=== PATIENT | male | born 1955 | race Caucasian/White ===

== ENCOUNTER 2020-01-05 16:45 | Inpatient (IN) ==
--- NOTE | 2020-01-05 17:01 | Emergency Department Note ---
History of Present Illness General Chief complaint: Back Injury/Pain Stated complaint: BACK PAIN Time Seen by Provider: 01/05/20 16:50 Source: patient Mode of arrival: EMS Limitations: no limitations History of Present Illness Provider complaint: Back pain, left hip pain Onset (ago): week(s) Location: back and hip Radiation: extremity Severity: severe Pain Consistency: + constant Maximum Pain Intensity: 10 Current Pain Intensity: 10 Quality: + constant Relieved By: + none Exacerbated By: + movement Associated symptoms: + denies other symptoms Treatments prior to arrival: none This is a 64-year-old male who presents via EMS from home due to worsening low back and left hip pain with radiation into the left lower extremity. Patient states he has been dealing with pain over the last several weeks/months. Patient was seen and evaluated by his family doctor who performed x-rays and an injection of the left hip for bursitis. Patient states he had followed up with his family doctor also after completing a course of steroids due to worsening pain as well as left morse pain and was referred for an outpatient MRI. Patient states he went and had the MRI done today and had increasing pain after he got off the table trying to get dressed and was unable to move. Patient states he typically would find relief laying flat or doing stretches he had learned for his low back. Patient is also been using some old Darvocet he had from prior hernia surgery at home without any improvement of pain. Patient states he has been using the Darvocet with increasing frequency due to worsening pain. Patient denies any recent trauma or change in activity. Patient states his pain initially began 2 months ago and he had slowly decrease the amount of walking he was doing daily, and began to limit any lifting and activity. Patient states the pain continued to worsen. Patient is also been using anti-inflammatories. Patient not noticed any redness or rash over the area of injection at the left greater trochanter. Pt seen during a time of high acuity and national emergency pandemic while wearing PPE. Home Medications Home Medications Medication Instructions Recorded Confirmed Type dextrin 2 tsp PO DAILY 01/05/20 01/05/20 History gabapentin 100 mg PO Q8H PRN #30 cap 01/05/20 Rx naproxen sodium [Naprelan CR] 500 mg PO BID 01/05/20 01/05/20 History oxycodone 5 mg PO Q6H PRN #10 tab 01/05/20 Rx propoxyphene N-acetaminophen 1 tab PO Q12H PRN 01/05/20 01/05/20 History [Darvocet-N 100] tamsulosin [Flomax] 0.4 mg PO HS 01/05/20 01/05/20 History Allergies Allergy/AdvReac Type Severity Reaction Status Date / Time hydrocodone Allergy Unknown DIZZY, Verified 01/05/20 19:44 RASH, NAUSEA oxaprozin AdvReac Mild "BLOATED, Verified 01/05/20 19:44 NAUSEA" clarithromycin AdvReac Unknown "JITTERY, Verified 01/05/20 19:44 TIRED, RAPID PULSE." terazosin AdvReac Unknown "RINING IN Verified 01/05/20 19:44 EARS, DIZZY" Past Med/Surg History Social History Smoking Status: Never smoker Hx Alcohol Use: No Hx Substance Use: No Preferred Language: Bhutanese Communication Ability: Effective Coordinator Volunteer Services Required: No Beliefs That Will Affect Care: None Current Living Situation: Spouse Other Information That Helps Us Care for You: No Feels Safe at Home: Yes Safety Concerns: Feels Safe At This Time Review of Systems See HPI for pertinent positives & negatives. and A total of 10 systems reviewed and were otherwise negative Physical Exam Vital Signs Vital Signs - 24 hr 01/05/20 17:15 01/05/20 17:34 01/05/20 18:00 Temperature 36.9 C Temperature Source Oral Pulse Rate 80 70 71 Pulse Rate [Bilateral Apical] Respiratory Rate 18 17 23 Blood Pressure 138/88 Blood Pressure [Left Arm] Blood Pressure Mean 104 Blood Pressure Mean [Left Arm] Pulse Oximetry 98 Oxygen Delivery Method Room Air Sepsis Recent Fever Within 48 Hours No Sepsis New/Unexplained Change in Mental Status No Sepsis Action Taken by Nursing No Action Required 01/05/20 18:31 01/05/20 18:33 01/05/20 19:10 Temperature Temperature Source Pulse Rate 61 63 Pulse Rate [Bilateral Apical] 60 Respiratory Rate 18 18 20 Blood Pressure 132/77 Blood Pressure [Left Arm] 124/66 Blood Pressure Mean 99 Blood Pressure Mean [Left Arm] 85 Pulse Oximetry 98 Oxygen Delivery Method Room Air Sepsis Recent Fever Within 48 Hours Sepsis New/Unexplained Change in Mental Status Sepsis Action Taken by Nursing 01/05/20 20:37 Temperature Temperature Source Pulse Rate Pulse Rate [Bilateral Apical] 70 Respiratory Rate 18 Blood Pressure Blood Pressure [Left Arm] 101/60 Blood Pressure Mean Blood Pressure Mean [Left Arm] 73 Pulse Oximetry 97 Oxygen Delivery Method Room Air Sepsis Recent Fever Within 48 Hours Sepsis New/Unexplained Change in Mental Status Sepsis Action Taken by Nursing GENERAL: alert, uncomfortable appearing, well nourished, moderate distress, non- toxic EYE EXAM: normal conjunctiva, PERRL and EOM's grossly intact OROPHARYNX: no exudate, no erythema, lips, buccal mucosa, and tongue normal and mucous membranes are moist NECK: supple, no nuchal rigidity, no adenopathy, non-tender LUNGS: Clear to auscultation. Normal chest wall mechanics, no w/r/r HEART: no murmurs, S1 normal and S2 normal ABDOMEN: abdomen soft, non-tender, normo-active bowel sounds, no masses, no rebound or guarding. BACK: Back is symmetrical on inspection and there is no deformity, no midline tenderness, no CVA tenderness. SKIN: no rashes and no bruising UPPER EXTREMITIES: upper extremities are grossly normal. FROM, nml pulses b/l. LOWER EXTREMITIES: No pitting edema. Decreased range of motion secondary to pain, nml pulses b/l. Patellar reflexes 1/4 b/l. Sensation intact b/l. +straight leg raise on left. No erythema or rash over left greater trochanter. Pt states subjectively feels warm to him. NEURO EXAM: Normal sensorium, cranial nerves II-XII grossly intact, normal speech, no gross weakness of arms, Difficulty assessing for weakness in the legs due to pain with movement most notably on the left. Gross sensation intact. Course Course 1739: Pt still having significant pain. 1825: Pt pain improved, worse with attempts at movement. 1944: Pt states pain returning, now a 14 out of 10. 2010: And if there was any option for inpatient rehab referral and they stated based on his insurance he would not be a candidate. Patient would either have to be admitted, which at this point time would be an observation, or discharged home to try and arrange home rehab as an outpatient. 2049: Pt rechecked. He would still like to try and go home, but understands that if he cannot walk due to pain, he will stay for pain mgmt and possible additional evaluation. Administered Medications Hydromorphone HCl (Hydromorphone Inj 0.5 Mg/0.5 Ml Syr) 0.2 mg IV Q3H PRN PRN Reason: Severe Pain Stop: 01/20/20 04:03 Last Admin: 01/07/20 00:31 Dose: 0.2 mg Documented by: [id number] Admin: 01/06/20 21:34 Dose: 0.2 mg Documented by: [id number] Admin: 01/06/20 18:25 Dose: 0.2 mg Documented by: [id number] Admin: 01/06/20 15:37 Dose: 0.2 mg Documented by: [id number] Admin: 01/06/20 08:42 Dose: 0.2 mg Documented by: [id number] Admin: 01/06/20 05:23 Dose: 0.2 mg Documented by: [id number] Dexamethasone 4 mg/ Syringe 1 mls @ 100 mls/hr IV Q6H CARROLL Stop: 02/05/20 05:59 Last Admin: 01/07/20 00:31 Dose: 100 mls/hr Documented by: [id number] Admin: 01/06/20 17:05 Dose: 100 mls/hr Documented by: [id number] Admin: 01/06/20 12:28 Dose: 100 mls/hr Documented by: [id number] Admin: 01/06/20 05:23 Dose: 100 mls/hr Documented by: [id number] Tamsulosin HCl (Tamsulosin Hcl 0.4 Mg Cap) 0.4 mg PO HS CARROLL Stop: 02/05/20 20:59 Last Admin: 01/06/20 20:36 Dose: 0.4 mg Documented by: [id number] Discontinued Medications Dexamethasone (Dexamethasone Sod Inj 10 Mg/Ml Vial) 10 mg IV NOW STA Stop: 01/05/20 22:48 Last Admin: 01/05/20 22:57 Dose: 10 mg Documented by: [id number] Diazepam (Diazepam 5 Mg/Ml Inj 10ml Vial) 2 mg IV NOW STA Stop: 01/05/20 17:45 Last Admin: 01/05/20 19:44 Dose: 2 mg Documented by: [id number] Diclofenac Sodium (Diclofenac Sod 1% Gel 100 Gm Tube) 2 gm EXT NOW STA Stop: 01/05/20 17:09 Last Admin: 01/05/20 17:38 Dose: 2 gm Documented by: [id number] Fentanyl Citrate (Fentanyl Citrate 100 Mcg/2 Ml Vial) 50 mcg IV Q15M PRN PRN Reason: Pain Stop: 01/19/20 17:02 Last Admin: 01/05/20 22:39 Dose: 50 mcg Documented by: [id number] Admin: 01/05/20 21:27 Dose: 50 mcg Documented by: [id number] Admin: 01/05/20 19:44 Dose: 50 mcg Documented by: [id number] Admin: 01/05/20 17:41 Dose: 50 mcg Documented by: [id number] Admin: 01/05/20 17:22 Dose: 50 mcg Documented by: [id number] Gabapentin (Gabapentin 100 Mg Cap) 100 mg PO NOW STA Stop: 01/05/20 17:57 Last Admin: 01/05/20 18:58 Dose: 100 mg Documented by: [id number] Acetaminophen (Ofirmev) 1,000 mg in 100 mls @ 400 mls/hr IV NOW STA Stop: 01/05/20 17:17 Last Infusion: 01/05/20 17:38 Dose: 0 mls/hr Documented by: [id number] Admin: 01/05/20 17:22 Dose: 400 mls/hr Documented by: [id number] Oxycodone HCl (Oxycodone Hcl Ir 5 Mg Tab (Immediate Release)) 5 mg PO NOW STA Stop: 01/05/20 19:46 Last Admin: 01/05/20 20:04 Dose: Not Given Documented by: [id number] Oxycodone HCl (Oxycodone Hcl Ir 5 Mg Tab (Immediate Release)) 5 mg PO NOW STA Stop: 01/05/20 20:25 Last Admin: 01/05/20 20:36 Dose: 5 mg Documented by: [id number] Trazodone HCl (Trazodone Hcl 50 Mg Tab) 50 mg PO NOW ONE Stop: 01/06/20 21:52 Last Admin: 01/06/20 22:25 Dose: 50 mg Documented by: [id number] Medical Decision Making Differential Diagnosis Differential diagnoses includes but is not limited to lumbar radiculopathy, muscle strain, facture, cauda equina, mass, and disc herniation. Medical Records Attestation: I reviewed the patient's medical records. Home Medications Current Medication List: was personally reviewed by me Laboratory Data Attestation: I reviewed the patient's lab results. Result diagrams: 01/05/20 17:10 01/05/20 17:10 Lab Results 01/05/20 01/05/20 01/05/20 Range/Units 17:10 17:10 17:10 WBC 10.45 (4.8-10.8) K/uL RBC 4.65 L (4.7-6.1) M/uL Hgb 14.2 (14.0-18.0) g/dL Hct 41.4 L (42-52) % MCV 89.0 (80-100) fL MCH 30.5 (25-34) pg MCHC 34.3 (32-36) g/dL RDW Std Deviation 41.6 (36.4-46.3) fL RDW Coeff of Speedy 12.8 (11.5-14.5) % Plt Count 235 (130-400) K/uL MPV 11.1 H (7.4-10.4) fL Immature Gran % (Auto) 0.2 % Neut % (Auto) 80.3 % Lymph % (Auto) 12.5 % [place] % (Auto) 6.2 % Eos % (Auto) 0.5 % Baso % (Auto) 0.3 % Neut # (Auto) 8.39 H (1.4-6.5) K/uL Lymph # (Auto) 1.31 (1.2-3.4) K/uL [place] # (Auto) 0.65 H (0.11-0.59) K/uL Eos # (Auto) 0.05 (0-0.5) K/uL Baso # (Auto) 0.03 (0-0.2) K/uL Immature Gran # (Auto) 0.02 (0.00-0.02) K/uL Sodium 138 (136-145) mmol/L Potassium 4.2 (3.5-5.1) mmol/L Chloride 104 (98-107) mmol/L Carbon Dioxide 25 (21-32) mmol/L Anion Gap 9.0 (3-11) BUN 16 (7-18) mg/dl Creatinine 1.31 (0.6-1.4) mg/dl Est Cr Clr Drug Dosing 54.4 ml/min Est GFR ( Amer) 65.8 Est GFR (Non-Af Amer) 56.7 BUN/Creatinine Ratio 11.9 (10-20) Glucose 114 H (70-99) mg/dl Calcium 9.2 (8.5-10.1) mg/dl Total Bilirubin 0.6 (0.2-1) mg/dl AST 25 (15-37) U/L ALT 44 (12-78) U/L Alkaline Phosphatase 53 (45-117) U/L Total Protein 7.6 (6.4-8.2) gm/dl Albumin 4.1 (3.4-5.0) gm/dl Globulin 3.5 (2.5-4.0) gm/dl Albumin/Globulin Ratio 1.2 (0.9-2) Hepatitis C Ab Screen Neg (Neg) Imaging Data Radiologist's Impression: MR lumbar spine wo con(performed earlier today as outpatient) CLINICAL HISTORY: RADICULOPATHY OF THE LUMBAR REGION TECHNIQUE: Sagittal and axial T1, T2 and STIR images were obtained. COMPARISON STUDY: X-ray study dated 10/30/2019 OBSERVATIONS: There is a 9 mm T1 and T2 hypointense lesion within the L3 vertebral body, likely representing a bone island. There is an L1 vertebral body focal fatty rest/hemangioma. L1-2: There is a mild circumferential disc bulge with mild spinal canal narrow ing. There is no significant foraminal stenosis. L2-3: There is a mild circumferential disc bulge with mild spinal canal narrowing. There is no significant foraminal stenosis. L3-4: In addition to a circumferential disc bulge, there is a left foraminal disc protrusion. There is moderate spinal stenosis and mild bilateral foraminal narrowing. L4-5: There is a mild circumferential disc bulge. There is no significant spinal or foraminal stenosis L5-S1: No disc protrusions or extrusions. No evidence of spinal canal or neural foraminal compromise. The conus medullaris and cauda equina appear normal. IMPRESSION: 1. Circumferential disc bulge and left foraminal disc protrusion at the L3-4 lev el. Moderate spinal stenosis and mild bilateral foraminal narrowing 2. Mild disc bulges with mild spinal canal narrowing at the L1-2 and L2-3 levels. ACT 112: Negative or not required by law. Electronically signed by: Lenard Matias M.D. 01/05/2020 3:57 PM XR hip LT 2V w pelvis HISTORY: 64 years-old Male pain . 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 No acute fracture, dislocation or definite avascular necrosis. Phleboliths of the pelvis. Unremarkable soft tissues. IMPRESSION: No acute fracture or dislocation. ACT 112: Negative or not required by law. The above report was generated using voice recognition software. It may contain grammatical, syntax or spelling errors. Electronically signed by: Mateo Moore M.D. 01/05/2020 6:38 PM ECG Data Attestation: I personally reviewed and interpreted this ECG as follows: Indication: + back/shoulder pain Rate (beats per minute): 77 Rhythm: + normal sinus ECG Intervals/blocks: + Normal QRS and + Normal QT ECG [place]: + Normal ECG ST segments: + Normal ST segments Blood Pressure Blood Pressure Findings: Elevated blood pressure Blood Pressure Disposition: further management by hospitalist VICTOR MANUEL Narrative This is s a 64-year-old male who presents due to increased left low back, left hip, left lower extremity pain. Patient has been in the process of evaluating and managing this via his PCP as an outpatient and did undergo an outpatient MRI earlier today. Patient has had a trial of steroids, and has also participated in physical therapy without any significant improvement. Patient has been afebrile, has no accompanying abdominal pain, has had no change in bowel or bladder function, denies incontinence and saddle anesthesia. Patient has a reassuring neuro exam here with equal pulses and intact sensation, patient does exhibit signs of significant pain and distress, particularly with any attempts at movement. Based on the MRI it does appear patient has an area of disc herniation and several other disc bulges as well as some mild degenerative changes. There is no other evidence of epidural abscess or hematoma, acute discitis, or osteomyelitis. Patient given several medications cautiously as he had concerns about adverse reactions and side effects. Patient was aware that if he could not ambulate even with an assistive device, it would not be safe for him to go home despite having a at home to help him. Patient ultimately unable to ambulate here even after several different medications, and in agreement with plan for additional inpatient evaluation. An order was placed for continuous cardiac monitoring. The monitor shows a rate of _70_ with _normal sinus rhythm. Impression & Plan Back pain, Acute left lumbar radiculopathy, Intervertebral disc protrusion, Hip pain, left Discharge Plan Visit Data Chief Complaint: Back Injury/Pain Stated Complaint: BACK PAIN ED Provider: Radha Mann Discharge Problem: Back pain, Acute left lumbar radiculopathy, Intervertebral disc protrusion, Hip pain, left Patient Disposition: Home - Self-Care Discharge Instructions Interventions: ED Discharge Assessment Last Done: 01/06/20 00:03 Discharge Problem: Back pain Qualifiers: Back pain location: low back pain Chronicity: chronic Back pain laterality: left Sciatica presence: with sciatica Sciatica laterality: sciatica of left side Qualified Code(s): M54.42 - Lumbago with sciatica, left side
[2020-01-05] MEDS ORDERED: ACETAMINOPHEN 1,000 MG/100 ML VIAL IV STA (17:03)
[2020-01-05] MEDS ORDERED: DICLOFENAC SOD 1% GEL 100 GM TUBE EXT STA (17:08)
[2020-01-05] MEDS: fentaNYL citrate 100 MCG/2 ML VIAL IV PRN ×5 (17:22→22:39)
[2020-01-05] MEDS ORDERED: GABAPENTIN 100 MG CAP PO STA (17:56)
[2020-01-05 17:58] LABS: Basophils # (auto) 0.03 K/uL (0-0.2); Basophils % (auto) 0.3 %; Eosinophils # (auto) 0.05 K/uL (0-0.5); Eosinophils % (auto) 0.5 %; Hematocrit (blood only) 41.4 % (42-52); Hemoglobin 14.2 g/dL (14.0-18.0); Immature Granulocytes # (auto) 0.02 K/uL (0.00-0.02); Immature Granulocytes % (auto) 0.2 %; Lymphocytes # (auto) 1.31 K/uL (1.2-3.4); Lymphocytes % (auto) 12.5 %; Mean Corpuscular Hemoglobin 30.5 pg (25-34); Mean Corpuscular Hgb Conc 34.3 g/dL (32-36); Mean Platelet Volume 11.1 fL (7.4-10.4); Monocytes # (auto) 0.65 K/uL (0.11-0.59); Monocytes % (auto) 6.2 %; Neutrophils # (auto) 8.39 K/uL (1.4-6.5); Neutrophils % (auto) 80.3 %; Platelet Count 235 K/uL (130-400); RDW Coefficient of Variation 12.8 % (11.5-14.5); RDW Standard Deviation 41.6 fL (36.4-46.3); Red Blood Count 4.65 M/uL (4.7-6.1); White Blood Count 10.45 K/uL (4.8-10.8)
[2020-01-05 18:10] LABS: Albumin Level 4.1 gm/dl (3.4-5.0); BUN Creatinine Ratio 11.9 (10-20); Calcium 9.2 mg/dl (8.5-10.1); Creatinine Clr Calc Pharmacy 54.4 ml/min; Est GFR (African American) 65.8; Est GFR (Non-African American) 56.7; Potassium 4.2 mmol/L (3.5-5.1)
[2020-01-05 18:13] LABS: Albumin Globulin Ratio 1.2 (0.9-2); Bilirubin,Total 0.6 mg/dl (0.2-1); Globulin 3.5 gm/dl (2.5-4.0); Total Protein 7.6 gm/dl (6.4-8.2)
[2020-01-05] MEDS: DIAZEPAM 5 MG/ML INJ 10ML VIAL IV STA ×2 (18:38→19:44)
--- NOTE | 2020-01-05 18:40 | XRay Report ---
XR hip LT 2V w pelvis HISTORY: 64 years-old Male pain . 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 No acute fracture, dislocation or def inite avascular necrosis. Phleboliths of the pelvis. Unremarkable soft tissues. IMPRESSION: No acute fracture or dislocation. ACT 112: Negative or not required by law. The above report was generated using voice recognition software. It may contain grammatical, syntax o r spelling errors. Electronically signed by: Mateo Moore M.D. 01/05/2020 6:38 PM
[2020-01-05] MEDS ORDERED: OXYCODONE HCL IR 5 MG TAB (IMMEDIATE RELEASE) PO STA ×2 (19:45→20:24)
--- NOTE | 2020-01-05 21:40 | Emergency Department Note ---
ED Visit Note The patient was signed out to me awaiting an ambulatory trial. The patient has too much pain to get out of bed. The patient will require inpatient therapy and admission for pain control as he was unable to get out of bed and ambulate. The hospitalist will be made aware. . : Back pain Qualifiers: Back pain location: low back pain Chronicity: chronic Back pain laterality: left Sciatica presence: with sciatica Sciatica laterality: sciatica of left side Qualified Code(s): M54.42 - Lumbago with sciatica, left side
[2020-01-05] MEDS ORDERED: ACETAMINOPHEN 325 MG TAB PO PRN (22:35)
[2020-01-05] MEDS ORDERED: MAGNESIUM HYDROXIDE SUSP 30 ML UDC PO PRN (22:35)
[2020-01-05] MEDS ORDERED: ONDANSETRON INJ 2 MG/ML 2 ML VIAL IV PRN (22:35)
[2020-01-05] MEDS ORDERED: ALUMINUM/MAGNESIUM SUSP 30 ML UDC PO PRN (22:35)
[2020-01-05] MEDS ORDERED: DEXAMETHASONE SOD INJ 10 MG/ML VIAL IV STA (22:47)
--- NOTE | 2020-01-05 23:56 | History & Physical Report ---
Date of Service January 05, 2020 Assessment & Plan (1) Intervertebral disc protrusion: Acute left lumbar radiculopathy/L3-4 left foraminal disc protrusion/moderate spinal stenosis/mild bilateral foraminal stenosis- Give Decadron 10 mg IV x1 now and then 4 mg IV every 6 hours. Dilaudid 0.2 mg IV every 3 hours as needed severe pain Consult orthopedic spine surgery Dr. Abernathy. Consult pain management service pending spine surgery consult. Present on Admission?: Yes (2) Acute left lumbar radiculopathy: See above Present on Admission?: Yes (3) Back pain: See above Present on Admission?: Yes (4) BPH loc w urin obs/LUTS: Continue tamsulosin 0.4 mg daily Present on Admission?: Yes History of Present Illness Chief Complaint: The patient presents to the emergency department with worsening of his low back, left sacroiliac, and intermittent left lower extremity pain radiating to his ankle. Primary Care Provider: Gregory Gomes The patient is a 64-year-old male with a past medical history including BPH with LUTS and low back pain. He was seen by his PCP, and received an injection of his left hip for possible bursitis, to address the pain is had over the last several months. He was also given a course of oral prednisone without signific ant improvement, while waiting for an outpatient MRI. He did have the MRI performed today, and had such severe pain after lying flat on the table, that he presented to the ED for assessment. Patient reports that he did have some old Darvocet, along with naproxen, that he had tried to relieve the pain, without significant improvement. Allergies Allergy/AdvReac Type Severity Reaction Status Date / Time hydrocodone Allergy Unknown DIZZY, Verified 01/05/20 19:44 RASH, NAUSEA oxaprozin AdvReac Mild "BLOATED, Verified 01/05/20 19:44 NAUSEA" clarithromycin AdvReac Unknown "JITTERY, Verified 01/05/20 19:44 TIRED, RAPID PULSE." terazosin AdvReac Unknown "RINING IN Verified 01/05/20 19:44 EARS, DIZZY" Home Medications Home Medications Medication Instructions Recorded Confirmed Type dextrin 2 tsp PO DAILY 01/05/20 01/05/20 History gabapentin 100 mg PO Q8H PRN #30 cap 01/05/20 Rx naproxen sodium [Naprelan CR] 500 mg PO BID 01/05/20 01/05/20 History oxycodone 5 mg PO Q6H PRN #10 tab 01/05/20 Rx propoxyphene N-acetaminophen 1 tab PO Q12H PRN 01/05/20 01/05/20 History [Darvocet-N 100] tamsulosin [Flomax] 0.4 mg PO HS 01/05/20 01/05/20 History Past Med/Surg History Social History Smoking Status: Never smoker Hx Alcohol Use: No Hx Substance Use: No Preferred Language: Amharic Communication Ability: Effective 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 Beliefs That Will Affect Care: None Current Living Situation: Spouse Other Information That Helps Us Care for You: No Feels Safe at Home: Yes Safety Concerns: Feels Safe At This Time Review of Systems Review of Systems: The patient denies chest pain, palpitations, shortness of breath, dyspnea on exertion, cough, lower extremity swelling, sore throat, fevers, chills, sweats, weight change, fatigue, nausea, vomiting, diarrhea , constipation, abdominal pain, pelvic pain, blood in urine or stool, dysuria, urinary frequency or urgency, lightheadedness, dizziness, headache, memory loss, loss of consciousness, rash, abnormal bruising or bleeding, imbalance, focal or generalized weakness, numbness or tingling in arms or right leg, generalized arthralgias or myalgias, neck pain, or night sweats. The review of systems is otherwise negative other than for that already noted above, and at least 10 systems have been reviewed. Physical Exam Physical Exam: The patient is awake, alert and oriented 3, well developed and well nourished, normocephalic and atraumatic, lying in bed and in no acute distress. HEENT--PERRL, EOMI, mucous membranes and oropharynx normal. Neck--supple. No JVD. No bruits. Thyroid normal, trachea midline, no adenopathy. Heart--normal S1 and S2. No murmurs, rubs or gallops. Lungs--clear bilaterally, no respiratory distress, no accessory muscle use. Abdomen--normal bowel sounds and soft. Nontender. Nondistended. Extremities--no cyanosis or clubbing. No edema. There are good distal pulses b/l. Dermatologic--normal skin turgor, normal color, no abnormal lymph nodes, no rash. Neurologic--cranial nerves II through XII grossly intact. Rheumatologic--limited exam due to lower back and left sacroiliac pain. Psychiatric--normal affect. Results & Data Results & Data ([facility]) Vital Signs (Past 12 Hours) Vital Signs Temp Pulse Pulse Resp BP BP Pulse Ox 01/05/20 22:43 63 18 107/55 L 99 01/05/20 21:31 61 20 116/53 L 99 01/05/20 20:37 70 18 101/60 97 01/05/20 19:10 60 20 124/66 98 01/05/20 18:33 63 18 132/77 01/05/20 18:31 61 18 01/05/20 18:00 71 23 01/05/20 17:34 70 17 01/05/20 17:15 98.4 F 80 18 138/88 98 Laboratory Results Laboratory Results WBC 10.45 K/uL (4.8-10.8) 01/05/20 17:10 RBC 4.65 M/uL (4.7-6.1) L 01/05/20 17:10 Hgb 14.2 g/dL (14.0-18.0) 01/05/20 17:10 Hct 41.4 % (42-52) L 01/05/20 17:10 MCV 89.0 fL (80-100) 01/05/20 17:10 MCH 30.5 pg (25-34) 01/05/20 17:10 MCHC 34.3 g/dL (32-36) 01/05/20 17:10 RDW Std Deviation 41.6 fL (36.4-46.3) 01/05/20 17:10 RDW Coeff of Speedy 12.8 % (11.5-14.5) 01/05/20 17:10 Plt Count 235 K/uL (130-400) 01/05/20 17:10 MPV 11.1 fL (7.4-10.4) H 01/05/20 17:10 Immature Gran % (Auto) 0.2 % 01/05/20 17:10 Neut % (Auto) 80.3 % 01/05/20 17:10 Lymph % (Auto) 12.5 % 01/05/20 17:10 Jefferson % (Auto) 6.2 % 01/05/20 17:10 Eos % (Auto) 0.5 % 01/05/20 17:10 Baso % (Auto) 0.3 % 01/05/20 17:10 Neut # (Auto) 8.39 K/uL (1.4-6.5) H 01/05/20 17:10 Lymph # (Auto) 1.31 K/uL (1.2-3.4) 01/05/20 17:10 Jefferson # (Auto) 0.65 K/uL (0.11-0.59) H 01/05/20 17:10 Eos # (Auto) 0.05 K/uL (0-0.5) 01/05/20 17:10 Baso # (Auto) 0.03 K/uL (0-0.2) 01/05/20 17:10 Immature Gran # (Auto) 0.02 K/uL (0.00-0.02) 01/05/20 17:10 Sodium 138 mmol/L (136-145) 01/05/20 17:10 Potassium 4.2 mmol/L (3.5-5.1) 01/05/20 17:10 Chloride 104 mmol/L (98-107) 01/05/20 17:10 Carbon Dioxide 25 mmol/L (21-32) 01/05/20 17:10 Anion Gap 9.0 (3-11) 01/05/20 17:10 BUN 16 mg/dl (7-18) 01/05/20 17:10 Creatinine 1.31 mg/dl (0.6-1.4) 01/05/20 17:10 Est Cr Clr Drug Dosing 54.4 ml/min 01/05/20 17:10 Est GFR ( Amer) 65.8 01/05/20 17:10 Est GFR (Non-Af Amer) 56.7 01/05/20 17:10 BUN/Creatinine Ratio 11.9 (10-20) 01/05/20 17:10 Glucose 114 mg/dl (70-99) H 01/05/20 17:10 Calcium 9.2 mg/dl (8.5-10.1) 01/05/20 17:10 Total Bilirubin 0.6 mg/dl (0.2-1) 01/05/20 17:10 AST 25 U/L (15-37) 01/05/20 17:10 ALT 44 U/L (12-78) 01/05/20 17:10 Alkaline Phosphatase 53 U/L (45-117) 01/05/20 17:10 Total Protein 7.6 gm/dl (6.4-8.2) 01/05/20 17:10 Albumin 4.1 gm/dl (3.4-5.0) 01/05/20 17:10 Globulin 3.5 gm/dl (2.5-4.0) 01/05/20 17:10 Albumin/Globulin Ratio 1.2 (0.9-2) 01/05/20 17:10 Hepatitis C Ab Screen Neg (Neg) 01/05/20 17:10 Diagnostic Findings [place], [place] [phone] Magnetic Resonance Report Patient: Loi RAMIREZdmit Date: 01/05/20 MR#: [id number]: [address] [facility] Acct ID:[id number]: Date: [address] [place] [address] Zip: [place] [address] Age: 64Location: MRI1 Sex: MRoom/Bed: Att Phy: Russell Hawkins, JOANNEiagnosis: RADICULOPATHY OF THE LUMBAR REGION Dinorah Phy: Gregory Gomes, MDService Date: 01/05/20 Fam Phy:Interpreting Phy: Lenard Matias MD Admit Phy: Ordering Phy: Russell Hawkins DO cc: ~ MR lumbar spine wo con CLINICAL HISTORY: RADICULOPATHY OF THE LUMBAR REGION TECHNIQUE: Sagittal and axial T1, T2 and STIR images were obtained. COMPARISON STUDY: X-ray study dated 10/30/2019 OBSERVATIONS: There is a 9 mm T1 and T2 hypointense lesion within the L3 vertebral body, likely representing a bone island. There is an L1 vertebral body focal fatty rest/hemangioma. L1-2: There is a mild circumferential disc bulge with mild spinal canal narrowing. There is no significant foraminal stenosis. L2-3: There is a mild circumferential disc bulge with mild spinal canal narrowing. There is no significant foraminal stenosis. L3-4: In addition to a circumferential disc bulge, there is a left foraminal disc protrusion. There is moderate spinal stenosis and mild bilateral foraminal narrowing. L4-5: There is a mild circumferential disc bulge. There is no significant spinal or foraminal stenosis L5-S1: No disc protrusions or extrusions. No evidence of spinal canal or neural foraminal compromise. The conus medullaris and cauda equina appear normal. IMPRESSION: 1. Circumferential disc bulge and left foraminal disc protrusion at the L3-4 level. Moderate spinal stenosis and mild bilateral foraminal narrowing 2. Mild disc bulges with mild spinal canal narrowing at the L1-2 and L2-3 levels. ACT 112: Negative or not required by law. Electronically signed by: Lenard Matias M.D. 01/05/2020 3:57 PM Dictated: 01/05/20 1547 Transcribed: 01/05/[address] [facility] ROULA Rodriguez [phone] XRay Report Patient: BAUDILIO RAMIREZdmit Date: 01/05/20 MR#: [id number]: [facility] Acct ID:[id number]: Date: [address] [place] [address] Zip: [place] [address] Age: 64Location: ED Sex: MRoom/Bed: Att Phy:Diagnosis: HIP PAIN Dinorah Phy: Gregory Gomes, MDService Date: 01/05/20 Fam Phy:Interpreting Phy: Immanuel Moore Admit Phy: Ordering Phy: Radha Mann DO cc: ~ XR hip LT 2V w pelvis HISTORY: 64 years-old Male pain . 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 No acute fracture, dislocation or definite avascular necrosis. Phleboliths of the pelvis. Unremarkable soft tissues. IMPRESSION: No acute fracture or dislocation. ACT 112: Negative or not required by law. The above report was generated using voice recognition software. It may contain grammatical, syntax or spelling errors. Electronically signed by: Mateo Moore M.D. 01/05/2020 6:38 PM Dictated: 01/05/201835 Transcribed: 01/05/201835 Code Status & VTE Plan Code Status Full code VTE Prophylaxis Plan VTE Prophylaxis will be ordered: Yes PG Care Time/CCT Total # of Minutes Spent Total Time Spent with Patient: Total time spent is greater than 50% in coordination of care (as documented) at patient's floor/unit and/or counseling patient: Coding Level of Care Code 66073 OBS Care - Level 3 Diagnoses Intervertebral disc protrusion Acute left lumbar radiculopathy M54.16 Back pain M54.42; G89.29 Back pain laterality: left Back pain location: low back pain Chronicity: chronic Sciatica laterality: sciatica of left side Sciatica presence: with sciatica BPH loc w urin obs/LUTS N40.1 (1) Back pain Back pain laterality: left Back pain location: low back pain Chronicity: chronic Sciatica laterality: sciatica of left side Sciatica presence: with sciatica Qualified Code(s): M54.42 - Lumbago with sciatica, left side; G89.29 - Other chronic pain
--- NOTE | 2020-01-06 04:22 | Communication Note ---
Date of Service: January 06, 2020 Notified by nursing that patient requesting Fentanyl IV. Endorsed that oxycodone doesn't work for current pain. Fentanyl unable to be given per floor restrictions for current care level. Patient was made aware of this by nursing staff on floor. Dilaudid IV PRN was ordered for pain but patient was refusing medication, insisting on transfer to the ED or that he was going to leave AMA to go back top ED to get Fentanyl IV. I discussed with him to try the Dilaudid IV that was ordered. He was questioning the efficiacy as compared to Darvocet or H ydrocodone. I provided education on opioid equivalency. Resident Activity Tracking Resident Involvement: Resident Care Provided Care Provided: Adult Hospital Medicine
[2020-01-06] MEDS: HYDROmorphone INJ 0.5 MG/0.5 ML SYR IV PRN ×5 (05:23→21:34)
[2020-01-06] MEDS: dexAMETHasone 4 MG in SYRINGE 0 ML IV SCH ×3 (05:23→17:05)
--- NOTE | 2020-01-06 10:28 | Orthopedic Consultation ---
Date of Consultation January 06, 2020 Assessment & Plan (1) Acute left lumbar radiculopathy: Lungs questions patient reviewing his MRI findings and clinical presentation. He appears to have a acute substantial far lateral disc herniation at L3-4 on the left. This is clearly creating a severe left L3 radiculopathy. We discussed treatment options which consist of continued medication interventional pain management or ultimately surgery. At this time we will can explore interventional pain management. Surgery would require partial discectomy versus fusion at the L3-L4 level. 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 He has a marked decline over the past several days however. He been undergoing physical therapy and tolerating exercises relatively well. This included cycling. Denies any specif ic trauma fall or event. States his symptoms are now radiating to the left buttock left knee and anterior left thigh. Right lower extremities asymptomatic. It limits his ability to stand and ambulate. He has crutches at this time as he is unable to place weight on left lower extremity. He is refractory to pain medications. Denies any bowel bladder changes. Allergies Allergy/AdvReac Type Severity Reaction Status Date / Time hydrocodone Allergy Unknown DIZZY, Verified 01/05/20 19:44 RASH, NAUSEA oxaprozin AdvReac Mild "BLOATED, Verified 01/05/20 19:44 NAUSEA" clarithromycin AdvReac Unknown "JITTERY, Verified 01/05/20 19:44 TIRED, RAPID PULSE." terazosin AdvReac Unknown "RINING IN Verified 01/05/20 19:44 EARS, DIZZY" Home Medications Home Medications Medication Instructions Recorded Confirmed Type dextrin 2 tsp PO DAILY 01/05/20 01/05/20 History gabapentin 100 mg PO Q8H PRN #30 cap 01/05/20 Rx naproxen sodium [Naprelan CR] 500 mg PO BID 01/05/20 01/05/20 History oxycodone 5 mg PO Q6H PRN #10 tab 01/05/20 Rx propoxyphene N-acetaminophen 1 tab PO Q12H PRN 01/05/20 01/05/20 History [Darvocet-N 100] tamsulosin [Flomax] 0.4 mg PO HS 01/05/20 01/05/20 History Patient History Social History Smoking Status: Never smoker Hx Alcohol Use: No Hx Substance Use: No Preferred Language: St Helenian Communication Ability: Effective Software Quality Tester Required: No Beliefs That Will Affect Care: None Current Living Situation: Spouse Other Information That Helps Us Care for You: No Feels Safe at Home: Yes Safety Concerns: Feels Safe At This Time Physical Exam Physical Exam: Patient is in bed. He is in obvious distress. He does have reasonable plantar flexion dorsiflexion bilaterally. Quadriceps are 5 5 on the right 4/5 on the left. He notes some sensory deficits. Results & Data ([facility]) Vital Signs (Past 12 Hours) Vital Signs Temp Pulse Pulse Resp BP Pulse Ox 01/06/20 07:57 36.5 C 91 H 16 121/77 93 01/06/20 00:10 36.9 C 68 18 163/78 H 97 01/05/20 23:56 54 L 20 128/74 93 01/05/20 22:43 63 18 107/55 L 99
[2020-01-06] MEDS: TAMSULOSIN HCL 0.4 MG CAP PO SCH (20:36)
[2020-01-06] MEDS ORDERED: TRAZODONE HCL 50 MG TAB PO ONE (21:51)
--- NOTE | 2020-01-06 22:14 | Electrocardiogram Report ---
Test Reason : Blood Pressure : / mmHG Vent. Rate : 077 BPM Atrial Rate : 077 BPM P-R Int : 164 ms QRS Dur : 096 ms QT Int : 404 ms P-R-T Axes : 079 081 053 degrees QTc Int : 457 ms Poor data quality, interpretation may be adversely affected Normal sinus rhythm Incomplete right bundle branch block Nonspecific T wave abnormality Borderline ECG When compared with ECG of 16-DEC-2000 01:29, Incomplete right bundle branch block is now Present Nonspecific T wave abnormality now evident in Lateral leads Confirmed by Zafar Louise ([id number]) on 01/06/2020 10:13:40 PM Referred By: REFERRED SELF Confirmed By:Zafar Louise
--- NOTE | 2020-01-06 22:20 | Hospitalist Progress Note ---
Date of Service January 06, 2020 Assessment & Plan (1) Intervertebral disc protrusion: Acute left lumbar radiculopathy/L3-4 left foraminal disc protrusion/moderate spinal stenosis/mild bilateral foraminal stenosis- Give Decadron 10 mg IV x1 now and then 4 mg IV every 6 hours. Dilaudid 0.2 mg IV every 3 hours as needed severe pain Consult orthopedic spine surgery Dr. Abernathy. Consult pain management service pending spine surgery consult. (2) Acute left lumbar radiculopathy: See above (3) Back pain: See above (4) BPH loc w urin obs/LUTS: Continue tamsulosin 0.4 mg daily Admission and Anticipated Discharge Date Admission Date: January 05, 2020 Subjective 64 yo male reports he continues to have back pain. He reports the dilaudid is not completely controlling it. Review of Systems Review of Systems: All systems reviewed & are unremarkable except as noted in HPI & below Physical Exam Physical Exam: The patient is awake, alert and oriented 3, well developed and well nourished, normocephalic and atraumatic, lying in bed and in no acute distress. HEENT--PERRL, EOMI, mucous membranes and oropharynx normal. Neck--supple. No JVD. No bruits. Thyroid normal, trachea midline, no adenopathy. Heart--normal S1 and S2. No murmurs, rubs or gallops. Lungs--clear bilaterally, no respiratory distress, no accessory muscle use. Abdomen--normal bowel sounds and soft. Nontender. Nondistended. Extremities--no cyanosis or clubbing. No edema. There are good distal pulses b/l. Dermatologic--normal skin turgor, normal color, no abnormal lymph nodes, no rash. Neurologic--cranial nerves II through XII grossly intact. Rheumatologic--limited exam due to lower back and left sacroiliac pain. Psychiatric--normal affect. Results & Data Results & Data ([facility]) Vital Signs (Past 12 Hours) Vital Signs Temp Pulse Resp BP Pulse Ox 01/06/20 15:26 36.7 C 79 18 112/68 92 PG Care Time/CCT Total # of Minutes Spent Total Time Spent with Patient: Total time spent is greater than 50% in coordination of care (as documented) at patient's floor/unit and/or counseling patient: Coding Level of Care Code 61405 Subseq Hosp Care Lvl 2 Diagnoses Intervertebral disc protrusion Acute left lumbar radiculopathy M54.16 Back pain M54.42; G89.29 Back pain laterality: left Back pain location: low back pain Chronicity: chronic Sciatica laterality: sciatica of left side Sciatica presence: with sciatica BPH loc w urin obs/LUTS N40.1 Time Spent (min) 25 (1) Back pain Back pain laterality: left Back pain location: low back pain Chronicity: chronic Sciatica laterality: sciatica of left side Sciatica presence: with sciatica Qualified Code(s): M54.42 - Lumbago with sciatica, left side; G89.29 - Other chronic pain
[2020-01-06] MEDS ORDERED: LIDOCAINE 5% 1 PATCH TD PRN (22:25)
[2020-01-06] MEDS ORDERED: GABAPENTIN 100 MG CAP PO PRN (22:29)
[2020-01-06] MEDS ORDERED: KETOROLAC TROMETHAMINE 15 MG/ML VIAL IV PRN (22:31)
[2020-01-07] MEDS: dexAMETHasone 4 MG in SYRINGE 0 ML IV SCH ×5 (00:31→23:02)
[2020-01-07] MEDS: HYDROmorphone INJ 0.5 MG/0.5 ML SYR IV PRN ×7 (00:31→22:14)
--- NOTE | 2020-01-07 13:51 | Orthopedic Progress Note ---
Date of Service January 07, 2020 Assessment & Plan (1) Acute left lumbar radiculopathy: Admission and Anticipated Discharge Date Admission Date: January 05, 2020 At this time the patient continues to complain of radiculopathy but is very interested in interventional pain management. He was strongly like to try an injection before considering any surgical intervention. Subjective Patient still complaining of intermittent severe L3 radiculopathy. Physical Exam Physical Exam: On exam he is able to perform his basic exercises. He feels that this was tolerable. He still not able to stand and walk without pain. Results & Data ([facility]) Vital Signs (Past 12 Hours) Vital Signs Temp Pulse Resp BP Pulse Ox 01/07/20 07:18 36.5 C 66 18 149/63 H 93
[2020-01-07] MEDS: TAMSULOSIN HCL 0.4 MG CAP PO SCH (20:10)
[2020-01-07] MEDS: GABAPENTIN 100 MG CAP PO SCH (20:10)
--- NOTE | 2020-01-07 22:56 | Hospitalist Progress Note ---
Date of Service January 07, 2020 Assessment & Plan (1) Intervertebral disc protrusion: Acute left lumbar radiculopathy/L3-4 left foraminal disc protrusion/moderate spinal stenosis/mild bilateral foraminal stenosis- Give Decadron 10 mg IV x1 now and then 4 mg IV every 6 hours. Dilaudid 0.2 mg IV every 3 hours as needed severe pain Consult orthopedic spine surgery Dr. Abernathy. Appreciate input. Consult pain management service: (2) Acute left lumbar radiculopathy: See above (3) Back pain: See above (4) BPH loc w urin obs/LUTS: Continue tamsulosin 0.4 mg daily Admission and Anticipated Discharge Date Admission Date: January 05, 2020 Subjective 64 yo male reports his back pain is better controlled today. He is interested in getting an injection today. Review of Systems Review of Systems: All systems reviewed & are unremarkable except as noted in HPI & below Physical Exam Physical Exam: The patient is awake, alert and oriented 3, well developed and well nourished, normocephalic and atraumatic, lying in bed and in no acute distress. HEENT--PERRL, EOMI, mucous membranes and oropharynx normal. Neck--supple. No JVD. No bruits. Thyroid normal, trachea midline, no adenopathy. Heart--normal S1 and S2. No murmurs, rubs or gallops. Lungs--clear bilaterally, no respiratory distress, no accessory muscle use. Abdomen--normal bowel sounds and soft. Nontender. Nondistended. Extremities--no cyanosis or clubbing. No edema. There are good distal pulses b/l. Dermatologic--normal skin turgor, normal color, no abnormal lymph nodes, no rash. Neurologic--cranial nerves II through XII grossly intact. Rheumatologic--limited exam due to lower back and left sacroiliac pain. Psychiatric--normal affect. Results & Data Results & Data ([facility]) Vital Signs (Past 12 Hours) Vital Signs Temp Pulse Resp BP Pulse Ox 01/07/20 14:54 36.1 C L 71 16 114/66 90 PG Care Time/CCT Total # of Minutes Spent Total Time Spent with Patient: Total time spent is greater than 50% in coordination of care (as documented) at patient's floor/unit and/or counseling patient: Coding Level of Care Code 24494 Subseq Hosp Care Lvl 3 Diagnoses Intervertebral disc protrusion Acute left lumbar radiculopathy M54.16 Back pain M54.42; G89.29 Back pain laterality: left Back pain location: low back pain Chronicity: chronic Sciatica laterality: sciatica of left side Sciatica presence: with sciatica BPH loc w urin obs/LUTS N40.1 Time Spent (min) 25 (1) Back pain Back pain laterality: left Back pain location: low back pain Chronicity: chronic Sciatica laterality: sciatica of left side Sciatica presence: with sciatica Qualified Code(s): M54.42 - Lumbago with sciatica, left side; G89.29 - Other chronic pain
[2020-01-08] MEDS: HYDROmorphone INJ 0.5 MG/0.5 ML SYR IV PRN ×2 (02:13→07:30)
[2020-01-08] MEDS: dexAMETHasone 4 MG in SYRINGE 0 ML IV SCH ×4 (06:54→23:58)
[2020-01-08] MEDS: GABAPENTIN 100 MG CAP PO SCH (07:30)
[2020-01-08] MEDS ORDERED: HYDROmorphone INJ 0.5 MG/0.5 ML SYR IV PRN (08:57)
--- NOTE | 2020-01-08 09:00 | Pain Management Consultation ---
Date of Consultation January 08, 2020 Assessment & Plan (1) Acute left lumbar radiculopathy: 1. Oxycodone PO x 4 hours was ordered for pain relief. 2. Dilaudid IV frequency was decreased from x 3 hours to every 6 hours PRN pain. Emphasized the importance to rely on oral medication to prepare for discharge. 3. Gabapentin was increased to 300mg TID. 4. Continue IV Decadron and Toradol pain. 5. Could consider a lumbar epidural injection but his pain does seem to be improving with the medication regimen. May consider lumbar epidural injection on an outpatient basis. History of Present Illness Reason for Consultation: Intractable lumbar radiculopathy Attending Physician: Alton Michelle History of Present Illness Mr. Yousif is a 64 year old male that is being seen at the [facility] for left hip/leg pain. Patient states that this pain has been ongoing for 3 months without any known injury. He describes a deep aching pain in the left low back and a numbness and aching sensation along the left knee to the midcalf. Weight bearing, walking, leg extension, and bending forwards does aggravate the pain. He has been working with physical therapy which has been providing some pain relief. He was scheduled to have a lumbar MRI and after the MRI his pain significantly worsened to where he had EMS called to take him to the Emergency Department. He has been receiving IV Decadron, IV Dilaudid, PO Gabapentin, and Lidocaine patch. He states that his pain is around 2-3 this morning. No bowel/bladder incontinence, saddle anesthesia, foot drop, or falls. Case discussed with Dr. Candice Ayala Pain Assessment Full Body Front + Back: 1. 2. [facility] Combined Pain Scale: 3-Mild - Interferes with pleasures of life. Stops some activities Allergies Allergy/AdvReac Type Severity Reaction Status Date / Time hydrocodone Allergy Unknown DIZZY, Verified 01/05/20 19:44 RASH, NAUSEA oxaprozin AdvReac Mild "BLOATED, Verified 01/05/20 19:44 NAUSEA" clarithromycin AdvReac Unknown "JITTERY, Verified 01/05/20 19:44 TIRED, RAPID PULSE." terazosin AdvReac Unknown "RINING IN Verified 01/05/20 19:44 EARS, DIZZY" Home Medications Home Medications Medication Instructions Recorded Confirmed Type dextrin 2 tsp PO DAILY 01/05/20 01/05/20 History gabapentin 100 mg PO Q8H PRN #30 cap 01/05/20 Rx naproxen sodium [Naprelan CR] 500 mg PO BID 01/05/20 01/05/20 History oxycodone 5 mg PO Q6H PRN #10 tab 01/05/20 Rx propoxyphene N-acetaminophen 1 tab PO Q12H PRN 01/05/20 01/05/20 History [Darvocet-N 100] tamsulosin [Flomax] 0.4 mg PO HS 01/05/20 01/05/20 History Patient History Medical History Acute left lumbar radiculopathy BPH loc w urin obs/LUTS Social History Smoking Status: Never smoker Hx Alcohol Use: No Hx Substance Use: No Preferred Language: Vietnamese Communication Ability: Effective [employer] Required: No Beliefs That Will Affect Care: None Current Living Situation: Spouse Other Information That Helps Us Care for You: No Feels Safe at Home: Yes Safety Concerns: Feels Safe At This Time Physical Exam Physical Exam: GENERAL: Speech and cognition is intact. Does appear moder ately anxious. Does not appear in acute distress. BACK: There is no midline, SI joint, or facet joint tenderness. No lumbosacral tenderness. There is no paraspinal, quadratus lumborum, piriformis, or gluteal tenderness or spasm. LOWER EXTREMITIES: Positive straight leg raise on the left, negative on the right. 5/5 strength of the bilateral lower extremities. Negative Johnna maneuver. No trochanteric bursa tenderness. There is no tenderness and full ROM of the left knee. NEURO: Moving around the hospital bed without difficulty. Awake, alert, and oriented x 3. Decreased sensation along the left lateral thigh. Results (Pain Clinic) Diagnostic Review MRI Findings: MR lumbar spine wo con CLINICAL HISTORY: RADICULOPATHY OF THE LUMBAR REGION TECHNIQUE: Sagittal and axial T1, T2 and STIR images were obtained. COMPARISON STUDY: X-ray study dated 10/30/2019 OBSERVATIONS: There is a 9 mm T1 and T2 hypointense lesion within the L3 vertebral body, likely representing a bone island. There is an L1 vertebral body focal fatty rest/hemangioma. L1-2: There is a mild circumferential disc bulge with mild spinal canal narrowing. There is no significant foraminal stenosis. L2-3: There is a mild circumferential disc bulge with mild spinal canal narrowing. There is no significant foraminal stenosis. L3-4: In addition to a circumferential disc bulge, there is a left foraminal disc protrusion. There is moderate spinal stenosis and mild bilateral foraminal narrowing. L4-5: There is a mild circumferential disc bulge. There is no significant spinal or foraminal stenosis L5-S1: No disc protrusions or extrusions. No evidence of spinal canal or neural foraminal compromise. The conus medullaris and cauda equina appear normal. IMPRESSION: 1. Circumferential disc bulge and left foraminal disc protrusion at the L3-4 level. Moderate spinal stenosis and mild bilateral foraminal narrowing 2. Mild disc bulges with mild spinal canal narrowing at the L1-2 and L2-3 levels. ACT 112: Negative or not required by law. Electronically signed by: Lenard Matias M.D. 01/05/2020 3:57 PM
[2020-01-08] MEDS ORDERED: GABAPENTIN 100 MG CAP PO ONE (09:15)
[2020-01-08] MEDS: GABAPENTIN 300 MG CAP PO SCH ×2 (13:22→19:50)
[2020-01-08] MEDS: OXYCODONE HCL IR 5 MG TAB (IMMEDIATE RELEASE) PO PRN ×2 (17:56→22:01)
[2020-01-08] MEDS ORDERED: LIDOCAINE 5% 1 PATCH TD PRN (18:34)
[2020-01-08] MEDS: TAMSULOSIN HCL 0.4 MG CAP PO SCH (19:50)
--- NOTE | 2020-01-08 22:45 | Hospitalist Progress Note ---
Date of Service January 08, 2020 Assessment & Plan (1) Intervertebral disc protrusion: Acute left lumbar radiculopathy/L3-4 left foraminal disc protrusion/moderate spinal stenosis/mild bilateral foraminal stenosis- Give Decadron 10 mg IV x1 now and then 4 mg IV every 6 hours., will taper to Q12H Dilaudid 0.2 mg IV every 3 hours as needed severe pain, RECOMMENDING OXYCODONE AND INCREASED GABAPENTIN. PLACED 2 PATCHES of lidocaine, one on the back and other on the leg. Consult orthopedic spine surgery Dr. Abernathy. Appreciate input: recommending surgery, patient wants to hold off for now. Consult pain management service: (2) Acute left lumbar radiculopathy: See above (3) Back pain: See above (4) BPH loc w urin obs/LUTS: Continue tamsulosin 0.4 mg daily Admission and Anticipated Discharge Date Admission Date: January 05, 2020 Subjective Patient continues to have back pain, but appears to be better controlled today. He is agreeable to tapering off IV narcotics. Is wondering if a patch with a narcotic is available. He is still wary of surgery. Review of Systems Review of Systems: All systems reviewed & are unremarkable except as noted in HPI & below Physical Exam Physical Exam: The patient is awake, alert and oriented 3, well developed and well nourished, normocephalic and atraumatic, lying in bed and in no acute distress. HEENT--PERRL, EOMI, mucous membranes and oropharynx normal. Neck--supple. No JVD. No bruits. Thyroid normal, trachea midline, no adenopathy. Heart--normal S1 and S2. No murmurs, rubs or gallops. Lungs--clear bilaterally, no respiratory distress, no accessory muscle use. Abdomen--normal bowel sounds and soft. Nontender. Nondistended. Extremities--no cyanosis or clubbing. No edema. There are good distal pulses b/l. Dermatologic--normal skin turgor, normal color, no abnormal lymph nodes, no rash. Neurologic--cranial nerves II through XII grossly intact. Rheumatologic--limited exam due to lower back and left sacroiliac pain. Psychiatric--normal affect. Results & Data Results & Data ([facility]) Vital Signs (Past 12 Hours) Vital Signs Temp Pulse Resp BP Pulse Ox 09/03/20 15:25 36.4 C L 65 16 122/65 91 PG Care Time/CCT Total # of Minutes Spent Total Time Spent with Patient: Total time spent is greater than 50% in coordination of care (as documented) at patient's floor/unit and/or counseling patient: Coding Level of Care Code 17246 Subseq Hosp Care Lvl 2 Diagnoses Intervertebral disc protrusion Acute left lumbar radiculopathy M54.16 Back pain M54.42; G89.29 Back pain laterality: left Back pain location: low back pain Chronicity: chronic Sciatica laterality: sciatica of left side Sciatica presence: with sciatica BPH loc w urin obs/LUTS N40.1 Time Spent (min) 25 (1) Back pain Back pain laterality: left Back pain location: low back pain Chronicity: chronic Sciatica laterality: sciatica of left side Sciatica presence: with sciatica Qualified Code(s): M54.42 - Lumbago with sciatica, left side; G89.29 - Other chronic pain
[2020-01-09] MEDS: OXYCODONE HCL IR 5 MG TAB (IMMEDIATE RELEASE) PO PRN ×5 (02:01→18:18)
[2020-01-09] MEDS: dexAMETHasone 4 MG in SYRINGE 0 ML IV SCH ×2 (05:52→18:17)
[2020-01-09] MEDS: GABAPENTIN 300 MG CAP PO SCH ×3 (08:09→20:00)
--- NOTE | 2020-01-09 09:25 | Pain Management Progress Note ---
Date of Service January 09, 2020 Assessment & Plan (1) Acute left lumbar radiculopathy: 1. His lumbar radiculopathy symptoms have improved with the current regimen. 2. Patient does continue to report pain in the left knee, could consider having orthopedics evaluate it. 3. Continue Oxycodone 5mg x 4 hours PRN. 4. Continue Gabapentin 300mg TID. 5. Could consider lumbar epidural injection on an outpatient basis. Admission and Anticipated Discharge Date Admission Date: January 05, 2020 Subjective Pain has been improving since yesterday. He is able to ambulate to the bathroom with little difficulty. He has been performing his exercises which he thinks he may have done a little too much. Pain was 9/10 for an hour yesterday which was relieved with Oxycodone. He has not utilized any IV Dilaudid since yesterday morning. Pain is well controlled with PO Oxycodone and Gabapentin. There is a mild aching the left low back. His predominant pain complaint is of the left knee. Pain Assessment Pain Assessment Full Body Front + Back: 1. 2. [facility] Combined Pain Scale: 3-Mild - Interferes with pleasures of life. Stops some activities Physical Exam Physical Exam: GENERAL: Speech and cognition is intact. Does appear less anxious than yesterday. Does not appear in acute distress. BACK: There is no midline, SI joint, or facet joint tenderness. No lumbosacral tenderness. There is no paraspinal, quadratus lumborum, piriformis, or gluteal tenderness or spasm. LOWER EXTREMITIES: Equivocal straight leg raise on the left, negative on the right. 5/5 strength of the bilateral lower extremities. Negative Johnna maneuver. No trochanteric bursa tenderness. Mild joint line tenderness of the left knee without crepitus.
[2020-01-09] MEDS ORDERED: POLYETHYLENE (MIRALAX) 17 GM PACK PO PRN (10:06)
[2020-01-09] MEDS ORDERED: SOD PHOSPHATE/SOD BIPHOSPHATE ENEMA 132 ML BTL PR PRN (10:06)
[2020-01-09] MEDS: DOCUSATE SODIUM 100 MG CAP PO SCH ×2 (11:25→20:00)
[2020-01-09] MEDS: SENNA 8.6 MG TAB PO SCH (11:25)
--- NOTE | 2020-01-09 15:44 | Hospitalist Progress Note ---
Date of Service January 09, 2020 Assessment & Plan (1) Intervertebral disc protrusion: MRI with Circumferential disc bulge and left foraminal disc protrusion at the L3-4 level. Moderate spinal stenosis and mild bilateral foraminal narrowing and mild disc bulges with mild spinal canal narrowing at the L1-2 and L2-3 levels. Orthopedic spine consulted and suggested surgery * At this point patient is deferring on surgery but would like to continue to consider and will discuss further with Dr. Abernathy as pain is still intractable Advised the patient that he will need pain management as an outpatient as well as follow-up with (2) Acute left lumbar radiculopathy: No noticeable neuro logical deficit Continue to follow with pain management as well as spine Ortho for treatment options (3) Intractable pain: Pain management consulted Continue oxycodone and gabapentin Patient will require outpatient following for possible injection Patient is also experiencing obstipation secondary to narcotic use * Started bowel regiment this morning with MiraLAX to be given this morning * Colace and Senokot ordered * Fleet enema ordered as needed (4) DVT prophylaxis: Has decided not to have surgery at this time We will continue with heparin subcu for the remainder of his stay for chemical prophylaxis Encourage ambulation and out of bed to chair Please refer to Dr. Cmumins's addendum for further recommendations and corrections. (5) BPH loc w urin obs/LUTS: Admission and Anticipated Discharge Date Admission Date: January 05, 2020 Subjective Attending: Dr. Cummins Patient seen and examined at bedside Continues to complain of lower back pain with radiation and radiculopathy into the left lower extremity going to the knee and no further. Patient states that his oxycodone and gabapentin work after about 20 minutes but only worked for 20 or 30 minutes after that. He states the pain starts out at 10 out of 10 and only reduces to about 6 or 7 out of 10. He denies any fever or chills. He has no nausea and vomiting. He has been moving around the room. He asks if he can do stretching exercises. He also asked if he was permitted to walk in the hallways. He has no other acute complaints other than pain. Review of Systems Review of Systems: All systems reviewed & are unremarkable except as noted in HPI & below Physical Exam Physical Exam: GENERAL : No acute distress EYES: No icterus, gaze conjugate NOSE: No evidence of epistaxis MOUTH: No lesions or candidiasis NECK: Supple LUNGS: CTA B/L, no wheezes, rales or rhonchi HEART: Regular, rate controlled ABDOMEN: Soft, NT, ND, BS Present EXTREMITIES: No LE edema, pedal pulses intact NEURO: A&OX3 Results & Data Results & Data ([facility]) Vital Signs (Past 12 Hours) Vital Signs Temp Pulse Resp BP Pulse Ox 01/09/20 07:10 36.7 C 57 L 16 117/62 95 Laboratory Results No labs since 01/05/2020 Diagnostic Findings No diagnostic imaging since 01/05/2020 PG Care Time/CCT Total # of Minutes Spent Total Time Spent with Patient: Total time spent is greater than 50% in coordination of care (as documented) at patient's floor/unit and/or counseling patient: 35 minutes Coding Level of Care Code 67164 Subseq Hosp Care Lvl 2 Diagnoses Intervertebral disc protrusion Acute left lumbar radiculopathy M54.16 Intractable pain R52 DVT prophylaxis Z29.9 BPH loc w urin obs/LUTS N40.1
[2020-01-09] MEDS: TAMSULOSIN HCL 0.4 MG CAP PO SCH (20:00)
[2020-01-09] MEDS: HEPARIN SOD 5,000 UNIT/0.5 ML VIAL SQ SCH (20:04)
[2020-01-10] MEDS: OXYCODONE HCL IR 5 MG TAB (IMMEDIATE RELEASE) PO PRN ×4 (02:26→18:37)
[2020-01-10] MEDS: dexAMETHasone 4 MG in SYRINGE 0 ML IV SCH (05:52)
[2020-01-10] MEDS ORDERED: Nursing to Pharmacy Communication SCH (06:00)
[2020-01-10] MEDS: GABAPENTIN 300 MG CAP PO SCH ×3 (06:19→21:15)
[2020-01-10] MEDS ORDERED: GABAPENTIN 300 MG CAP PO SCH (06:30)
[2020-01-10] MEDS: SENNA 8.6 MG TAB PO SCH (07:54)
[2020-01-10] MEDS: DOCUSATE SODIUM 100 MG CAP PO SCH ×2 (07:55→21:15)
[2020-01-10] MEDS: HEPARIN SOD 5,000 UNIT/0.5 ML VIAL SQ SCH ×2 (07:56→21:16)
--- NOTE | 2020-01-10 15:46 | Hospitalist Progress Note ---
Date of Service January 10, 2020 Assessment & Plan (1) Intervertebral disc protrusion: Acute left lumbar radiculopathy/L3-4 left foraminal disc protrusion/moderate spinal stenosis/mild bilateral foraminal stenosis. - Taper steroids today - Continue gabapentin, oxycodone, acetaminophen, and toradol. - If pain is not tolerable by Sunday, will re-discuss surgery with Dr. Abernathy. - Consulted pain management service -> Appreciate recs. Would pursue outpatient injections; however, patient unsure if he can wait that long. (2) Acute left lumbar radiculopathy: See above (3) Back pain: See above (4) BPH loc w urin obs/LUTS: No report of LUTS today. - Continue tamsulosin 0.4 mg daily (5) DVT prophylaxis: Heparin 5,000 units SQ Q12h Admission and Anticipated Discharge Date Admission Date: January 05, 2020 Subjective Doing some better today. Able to space out his oxycodone somewhat. Reports no fevers/chills, chest pain, shortness of breath, abdominal pain, nausea, or vomiting. Physical Exam Constitutional: WD/WN, vitals as above Eyes: EOM intact bilaterally; no conjunctival abnormality ENMT: external ear and nose normal, oropharynx normal Neck: trachea midline, no thyromegaly normal visual inspection Respiratory: normal respiratory effort, lungs clear to auscultation no respiratory distress Cardiovascular: RRR, no murmur, no edema Gastrointestinal (Abdomen): Inspection/Auscultation: abdomen normal to inspection; abdomen not distended Musculoskeletal: no cyanosis or clubbing, extremities motor strength 5/5 Skin: no rashes, warm and dry Neurologic: moves all extremities and awake Psychiatric: Orientation: alert, oriented to person and cooperative Results & Data Results & Data ([facility]) Vital Signs (Past 12 Hours) Vital Signs Temp Pulse Resp BP Pulse Ox 01/10/20 15:30 36.3 C L 66 16 130/69 95 01/10/20 07:34 36.4 C L 62 18 131/73 96 PG Care Time/CCT Total # of Minutes Spent Total Time Spent with Patient: Total time spent is greater than 50% in coordination of care (as documented) at patient's floor/unit and/or counseling patient: Coding Level of Care Code 55800 Subseq Hosp Care Lvl 2 Diagnoses Intervertebral disc protrusion Acute left lumbar radiculopathy M54.16 Back pain M54.42; G89.29 Back pain laterality: left Back pain location: low back pain Chronicity: chronic Sciatica laterality: sciatica of left side Sciatica presence: with sciatica BPH loc w urin obs/LUTS N40.1 DVT prophylaxis Z29.9 (1) Back pain Back pain laterality: left Back pain location: low back pain Chronicity: chronic Sciatica laterality: sciatica of left side Sciatica presence: with sciatica Qualified Code(s): M54.42 - Lumbago with sciatica, left side; G89.29 - Other chronic pain
[2020-01-10] MEDS: TAMSULOSIN HCL 0.4 MG CAP PO SCH (21:15)
[2020-01-11] MEDS: OXYCODONE HCL IR 5 MG TAB (IMMEDIATE RELEASE) PO PRN ×5 (01:40→23:30)
[2020-01-11] MEDS: GABAPENTIN 300 MG CAP PO SCH ×3 (06:07→20:27)
[2020-01-11] MEDS: HEPARIN SOD 5,000 UNIT/0.5 ML VIAL SQ SCH ×2 (08:47→20:29)
[2020-01-11] MEDS: methylPREDNISolone 4 MG TAB PO SCH (08:48)
[2020-01-11] MEDS: SENNA 8.6 MG TAB PO SCH (08:48)
[2020-01-11] MEDS: DOCUSATE SODIUM 100 MG CAP PO SCH ×2 (08:48→20:27)
--- NOTE | 2020-01-11 09:17 | Orthopedic Progress Note ---
Date of Service January 11, 2020 Assessment & Plan (1) Acute left lumbar radiculopathy: Patient ideally would like to try an epidural injection but this would have to be performed on an outpatient basis. Due to his severe pain he is unsure if he would be able to make it to this appointment which most likely be in a few weeks and is quite concerned about adequate pain control. We then discussed pursuing surgical intervention. He is more open to this idea of considering surgical intervention. I have reviewed with him this would most likely be towards the latter half of the week. We will continue with current pain regimen. All questions have been answered in detail. Admission and Anticipated Discharge Date Admission Date: January 05, 2020 Supervising Physician Co-Signing Physician Notes Dr. Maldonado Abernathy Subjective Patient reports continued severe left anterior thigh and knee pain. He now has new numbness along the left anterior morse. Right leg is asymptomatic.He notes urinary hesitancy when pain is severe. He reports he is strongly considering surgical intervention at this point. Review of Systems Review of Systems: All systems reviewed & are unremarkable except as noted in HPI & below Physical Exam Physical Exam: He is lying in bed. No acute distress. Alert and oriented x3. 5/5 bilateral EHL, dorsiflexion, plantarflexion. Some breakaway weakness over the left quadricep. Constitutional: WD/WN, vitals as above Eyes: normal visual hilario by confrontation ENMT: external ear and nose normal, oropharynx normal Neck: normal visual inspection Respiratory: normal respiratory effort Cardiovascular: Vessels: normal peripheral pulses Extremities: normal capillary refill Chest (Breasts): Chest: normal inspection of chest Gastrointestinal (Abdomen): Inspection/Auscultation: abdomen normal to inspection Musculoskeletal: Extremities: + abnormal strength Skin: no rashes, warm and dry Neurologic: moves all extremities Psychiatric: A+Ox3, euthymic affect Results & Data ([facility]) Vital Signs (Past 12 Hours) Vital Signs Temp Pulse Resp BP BP Pulse Ox 01/11/20 07:07 36.8 C 57 L 16 147/82 H 96 01/10/20 23:28 36.2 C L 72 16 127/68 95
--- NOTE | 2020-01-11 14:42 | Hospitalist Progress Note ---
Date of Service January 11, 2020 Assessment & Plan (1) Intervertebral disc protrusion: Acute left lumbar radiculopathy/L3-4 left foraminal disc protrusion/moderate spinal stenosis/mild bilateral foraminal stenosis. - Tapering steroids to oral so that he could in theory do a Medrol DosePak on discharge. - Continue gabapentin, oxycodone, acetaminophen, and Toradol. - Consulted pain management service -> Appreciate recs. Would pursue outpatient injections; however, patient unsure if he can wait that long. - Discussed with Yaquelin Gutiérrez today. Dr. bAernathy out until Sunday. Earliest surgical date is . At the point, the patient is hoping to speak with Pain Management on Sunday to see when injection could be arranged. If he can get a date set soon, he would try to pursue injection instead of surgery. (2) Acute left lumbar radiculopathy: See above (3) Back pain: See above (4) BPH loc w urin obs/LUTS: No report of LUTS today. - Continue tamsulosin 0.4 mg daily (5) DVT prophylaxis: Heparin 5,000 units SQ Q12h Admission and Anticipated Discharge Date Admission Date: January 05, 2020 Subjective Lots of pain overnight. Is still hoping to get well enough to get an outpatient epidural. Reports no fevers/chills, chest pain, shortness of breath, abdominal pain, nausea, or vomiting. Physical Exam Constitutional: WD/WN, vitals as above Eyes: EOM intact bilaterally; no conjunctival abnormality ENMT: external ear and nose normal, oropharynx normal Neck: trachea midline, no thyromegaly normal visual inspection Respiratory: normal respiratory effort, lungs clear to auscultation no re spiratory distress Cardiovascular: RRR, no murmur, no edema Gastrointestinal (Abdomen): Inspection/Auscultation: abdomen normal to inspection; abdomen not distended Musculoskeletal: no cyanosis or clubbing, extremities motor strength 5/5 Skin: no rashes, warm and dry Neurologic: moves all extremities and awake Psychiatric: Orientation: alert, oriented to person and cooperative Results & Data Results & Data ([facility]) Vital Signs (Past 12 Hours) Vital Signs Temp Pulse Resp BP Pulse Ox 01/11/20 07:07 36.8 C 57 L 16 147/82 H 96 PG Care Time/CCT Total # of Minutes Spent Total Time Spent with Patient: Total time spent is greater than 50% in coordination of care (as documented) at patient's floor/unit and/or counseling patient: Coding Level of Care Code 15756 Subseq Hosp Care Lvl 2 Diagnoses Intervertebral disc protrusion Acute left lumbar radiculopathy M54.16 Back pain M54.42; G89.29 Back pain laterality: left Back pain location: low back pain Chronicity: chronic Sciatica laterality: sciatica of left side Sciatica presence: with sciatica BPH loc w urin obs/LUTS N40.1 DVT prophylaxis Z29.9 (1) Back pain Back pain laterality: left Back pain location: low back pain Chronicity: chronic Sciatica laterality: sciatica of left side Sciatica presence: with sciatica Qualified Code(s): M54.42 - Lumbago with sciatica, left side; G89.29 - Other chronic pain
[2020-01-11] MEDS: TAMSULOSIN HCL 0.4 MG CAP PO SCH (20:27)
[2020-01-12] MEDS: GABAPENTIN 300 MG CAP PO SCH ×3 (05:28→21:44)
[2020-01-12] MEDS: OXYCODONE HCL IR 5 MG TAB (IMMEDIATE RELEASE) PO PRN ×5 (05:29→23:52)
[2020-01-12 06:11] LABS: Hematocrit (blood only) 38.4 % (42-52); Hemoglobin 13.4 g/dL (14.0-18.0); Mean Corpuscular Hemoglobin 31.2 pg (25-34); Mean Corpuscular Hgb Conc 34.9 g/dL (32-36); Mean Corpuscular Volume 89.5 fL (80-100); Mean Platelet Volume 10.3 fL (7.4-10.4); Platelet Count 266 K/uL (130-400); RDW Coefficient of Variation 13.1 % (11.5-14.5); RDW Standard Deviation 42.5 fL (36.4-46.3); Red Blood Count 4.29 M/uL (4.7-6.1); White Blood Count 15.89 K/uL (4.8-10.8)
[2020-01-12 06:21] LABS: BUN Creatinine Ratio 23.2 (10-20); Calcium 8.2 mg/dl (8.5-10.1); Creatinine Clr Calc Pharmacy 68.9 ml/min; Est GFR (African American) 79.5; Est GFR (Non-African American) 68.6; Magnesium 2.3 mg/dl (1.8-2.4); Phosphorus 2.7 mg/dl (2.5-4.9); Potassium 4.3 mmol/L (3.5-5.1)
[2020-01-12] MEDS: SENNA 8.6 MG TAB PO SCH (08:51)
[2020-01-12] MEDS: DOCUSATE SODIUM 100 MG CAP PO SCH ×2 (08:51→21:44)
[2020-01-12] MEDS: HEPARIN SOD 5,000 UNIT/0.5 ML VIAL SQ SCH ×2 (08:51→21:45)
[2020-01-12] MEDS: methylPREDNISolone 4 MG TAB PO SCH (08:51)
--- NOTE | 2020-01-12 16:39 | Hospitalist Progress Note ---
Date of Service January 12, 2020 Assessment & Plan (1) Intervertebral disc protrusion: Acute left lumbar radiculopathy/L3-4 left foraminal disc protrusion/moderate spinal stenosis/mild bilateral foraminal stenosis. - continue methylprednisolone 8mg daily and taper down - Continue gabapentin, acetaminophen -increase oxycodone to 10mg for severe pain, 5 mg or moderate pain, and add scheduled dose at 0400 at his request - Consulted pain management service -> Appreciate recs. Would pursue outpatient injections; however, patient unsure if he can wait that long. - If pain controlled enough on po meds, plan for dc to home tomorrow with plans for outpt YOBANY -if not controlled enough to go home, will plan for earliest surgical date is with Dr. Abernathy -continue bowel regimen (2) Acute left lumbar radiculopathy: See above (3) Back pain: See above (4) BPH loc w urin obs/LUTS: No report of LUTS today. - Continue tamsulosin 0.4 mg daily (5) DVT prophylaxis: Heparin 5,000 units SQ Q12h Dispo-continued stay Admission and Anticipated Discharge Date Admission Date: January 05, 2020 Subjective Had excruciating pain early this AM as he reports he went too long without getting pain meds overnight. He is asking if he can have a scheduled dose in the middle of the night. He is better now and is trying to space out his oxycodone to q5-6 hours. He was able to walk around the halls x 30 min today. He had a BM 2 days ago which is normal for him to go 4 days without one. No chest pain or SOB but has been having some heartburn from all the excessive carbs he's not used to eating. Declines TUMs Is still hoping to get home tomorrow if pain better controlled tonight Review of Systems Review of Systems: All systems reviewed & are unremarkable except as noted in HPI & below has numbness in left morse Physical Exam Constitutional: WD/WN, vitals as above Eyes: + anicteric sclerae Neck: trachea midline, no thyromegaly Respiratory: normal respiratory effort, lungs clear to auscultation Cardiovascular: RRR, no murmur, no edema Chest (Breasts): Chest: normal inspection of chest Gastrointestinal (Abdomen): normal bowel sounds, soft, nontender, no hepatosplenomegaly Musculoskeletal: Extremities: extremities normal to inspection; no cyanosis and no clubbing Skin: no rashes, warm and dry Neurologic: deep tendon reflexes 2+ bilaterally, moves all extremities, + focal motor deficit (4/5 strength in left hip flexion,knee ext/flexion,otherwise 5/5 in LEs) and awake; not confused Motor/Sensory: + sensory deficit (decreased sensation to lt touch left medial leg) Psychiatric: A+Ox3, euthymic affect Lymphatic: no lymphedema Results & Data Results & Data ([facility]) Vital Signs (Past 12 Hours) Vital Signs Temp Pulse Resp BP Pulse Ox 01/12/20 16:04 37.1 C 82 18 126/70 95 01/12/20 06:43 36.6 C 66 19 113/73 96 Laboratory Results 01/12/20 01/12/20 Range/Units 05:54 05:54 WBC 15.89 H (4.8-10.8) K/uL RBC 4.29 L (4.7-6.1) M/uL Hgb 13.4 L (14.0-18.0) g/dL Hct 38.4 L (42-52) % MCV 89.5 (80-100) fL MCH 31.2 (25-34) pg MCHC 34.9 (32-36) g/dL RDW Std Deviation 42.5 (36.4-46.3) fL RDW Coeff of Speedy 13.1 (11.5-14.5) % Plt Count 266 (130-400) K/uL MPV 10.3 (7.4-10.4) fL Sodium 137 (136-145) mmol/L Potassium 4.3 (3.5-5.1) mmol/L Chloride 103 (98-107) mmol/L Carbon Dioxide 30 (21-32) mmol/L Anion Gap 4.0 (3-11) BUN 26 H (7-18) mg/dl Creatinine 1.12 (0.6-1.4) mg/dl Est Cr Clr Drug Dosing 68.9 ml/min Est GFR ( Amer) 79.5 Est GFR (Non-Af Amer) 68.6 BUN/Creatinine Ratio 23.2 H (10-20) Glucose 95 (70-99) mg/dl Calcium 8.2 L (8.5-10.1) mg/dl Phosphorus 2.7 (2.5-4.9) mg/dl Magnesium 2.3 (1.8-2.4) mg/dl PG Care Time/CCT Total # of Minutes Spent Total Time Spent with Patient: Total time spent is greater than 50% in coordination of care (as documented) at patient's floor/unit and/or counseling patient: Coding Level of Care Code 61510 Subseq Hosp Care Lvl 2 Diagnoses Intervertebral disc protrusion Acute left lumbar radiculopathy M54.16 Back pain M54.42; G89.29 Back pain laterality: left Back pain location: low back pain Chronicity: chronic Sciatica laterality: sciatica of left side Sciatica presence: with sciatica BPH loc w urin obs/LUTS N40.1 DVT prophylaxis Z29.9 (1) Back pain Back pain laterality: left Back pain location: low back pain Chronicity: chronic Sciatica laterality: sciatica of left side Sciatica presence: with sciatica Qualified Code(s): M54.42 - Lumbago with sciatica, left side; G89.29 - Other chronic pain
[2020-01-12] MEDS ORDERED: OXYCODONE HCL IR 5 MG TAB (IMMEDIATE RELEASE) PO PRN (16:45)
[2020-01-12] MEDS: TAMSULOSIN HCL 0.4 MG CAP PO SCH (21:45)
[2020-01-13] MEDS: OXYCODONE HCL IR 5 MG TAB (IMMEDIATE RELEASE) PO SCH ×2 (03:54→07:54)
[2020-01-13] MEDS: GABAPENTIN 300 MG CAP PO SCH ×3 (06:29→22:14)
[2020-01-13] MEDS: SENNA 8.6 MG TAB PO SCH (07:54)
[2020-01-13] MEDS: methylPREDNISolone 4 MG TAB PO SCH (07:54)
[2020-01-13] MEDS: HEPARIN SOD 5,000 UNIT/0.5 ML VIAL SQ SCH (07:54)
[2020-01-13] MEDS: DOCUSATE SODIUM 100 MG CAP PO SCH ×2 (07:54→22:14)
[2020-01-13] MEDS: OXYCODONE HCL IR 5 MG TAB (IMMEDIATE RELEASE) PO PRN ×2 (11:57→18:09)
--- NOTE | 2020-01-13 13:15 | Hospitalist Progress Note ---
Date of Service January 13, 2020 Assessment & Plan (1) Intervertebral disc protrusion: Acute left lumbar radiculopathy/L3-4 left foraminal disc protrusion/moderate spinal stenosis/mild bilateral foraminal stenosis. Continues to have severe left sided lumbar radiculopathy, not changed much by Oxycodone, gabapentin, and steroids -now plan for YOBANY tomorrow AM after discussion with Pain Man -NPO after midnight -hold heparin and NSAIDs dc steroids - Continue gabapentin, acetaminophen, and lidocaine patch -increase oxycodone to 10mg for severe pain scheduled at nighttime, 5 mg for moderate pain, and continue scheduled dose of 5mg at 0400 at his request -if not controlled enough to go home, will plan for earliest surgical date is with Dr. Abernathy -continue bowel regimen (2) Acute left lumbar radiculopathy: See above (3) Back pain: See above (4) BPH loc w urin obs/LUTS: No report of LUTS here - Continue tamsulosin 0.4 mg daily (5) Constipation: no BM in 3-4 days, says he has alternating constipation and diarrhea at home, fiber does not help -continue senna, docusate scheduled Fleets enema and Miralax prn (6) DVT prophylaxis: Heparin 5,000 units SQ [id number] on HOLD in case of YOBANY Dispo-continued stay Admission and Anticipated Discharge Date Admission Date: January 05, 2020 Subjective Pt still having severe pain in left knee, hip and numbness in left morse. He continues to have the worst of his pain at night and is hopefull he can get an YOBANY as an inpatient because he fears he won't be able to tolerate the pain at home. Denies CP/SOB. No BM yet. I discussed the case with Pain Management today Review of Systems Review of Systems: All systems reviewed & are unremarkable except as noted in HPI & below Physical Exam Constitutional: WD/WN, vitals as above Eyes: + anicteric sclerae Neck: trachea midline, no thyromegaly Respiratory: normal respiratory effort, lungs clear to auscultation Cardiovascular: RRR, no murmur, no edema Chest (Breasts): Chest: normal inspection of chest Gastrointestinal (Abdomen): normal bowel sounds, soft, nontender, no hepatosplenomegaly Musculoskeletal: Extremities: extremities normal to inspection; no cyanosis and no clubbing Skin: no rashes, warm and dry Neurologic: moves all extremities, + focal motor deficit (4/5 strength in left hip flexion,knee ext/flexion,otherwise 5/5 in LEs) and awake; not confused Gait: + gait assisted Psychiatric: Orientation: alert and oriented x 3 Affect: + anxious affect Mood: + anxious mood Lymphatic: no lymphedema Results & Data Results & Data ([facility]) Vital Signs (Past 12 Hours) Vital Signs Temp Pulse Resp BP Pulse Ox 01/13/20 06:57 35.8 C L 59 L 17 122/72 96 PG Care Time/CCT Total # of Minutes Spent Total Time Spent with Patient: Total time spent is greater than 50% in coordination of care (as documented) at patient's floor/unit and/or counseling patient: Coding Level of Care Code 31947 Subseq Hosp Care Lvl 3 Diagnoses Intervertebral disc protrusion Acute left lumbar radiculopathy M54.16 Back pain M54.42; G89.29 Back pain laterality: left Back pain location: low back pain Chronicity: chronic Sciatica laterality: sciatica of left side Sciatica presence: with sciatica BPH loc w urin obs/LUTS N40.1 Constipation K59.00 DVT prophylaxis Z29.9 (1) Back pain Back pain laterality: left Back pain location: low back pain Chronicity: chronic Sciatica laterality: sciatica of left side Sciatica presence: with sciatica Qualified Code(s): M54.42 - Lumbago with sciatica, left side; G89.29 - Other chronic pain
[2020-01-13] MEDS: TAMSULOSIN HCL 0.4 MG CAP PO SCH (22:13)
[2020-01-13] MEDS ORDERED: OXYCODONE HCL IR 5 MG TAB (IMMEDIATE RELEASE) PO SCH (23:30)
[2020-01-14] MEDS: GABAPENTIN 300 MG CAP PO SCH ×2 (05:43→13:09)
[2020-01-14] MEDS: OXYCODONE HCL IR 5 MG TAB (IMMEDIATE RELEASE) PO PRN ×2 (05:49→12:08)
[2020-01-14 06:16] LABS: Hematocrit (blood only) 38.2 % (42-52); Hemoglobin 13.2 g/dL (14.0-18.0); Mean Corpuscular Hemoglobin 31.1 pg (25-34); Mean Corpuscular Hgb Conc 34.6 g/dL (32-36); Mean Corpuscular Volume 89.9 fL (80-100); Mean Platelet Volume 10.1 fL (7.4-10.4); Platelet Count 265 K/uL (130-400); RDW Coefficient of Variation 13.4 % (11.5-14.5); RDW Standard Deviation 43.9 fL (36.4-46.3); Red Blood Count 4.25 M/uL (4.7-6.1); White Blood Count 14.76 K/uL (4.8-10.8)
[2020-01-14 06:31] LABS: INR 0.9 (0.9-1.1); Partial Thromboplastin Ratio 0.8; Partial Thromboplastin Time 23.6 Seconds (21.0-31.0)
[2020-01-14 06:37] LABS: Basophils # (auto) 0.02 K/uL (0-0.2); Basophils % (auto) 0.1 %; Eosinophils # (auto) 0.14 K/uL (0-0.5); Eosinophils % (auto) 0.9 %; Immature Granulocytes # (auto) 1.14 K/uL (0.00-0.02); Immature Granulocytes % (auto) 7.7 %; Lymphocytes # (auto) 4.21 K/uL (1.2-3.4); Lymphocytes % (auto) 28.5 %; Monocytes # (auto) 1.07 K/uL (0.11-0.59); Monocytes % (auto) 7.2 %; Neutrophils # (auto) 8.18 K/uL (1.4-6.5); Neutrophils % (auto) 55.6 %
[2020-01-14 06:46] LABS: BUN Creatinine Ratio 22.6 (10-20); Calcium 8.3 mg/dl (8.5-10.1); Creatinine Clr Calc Pharmacy 55.9 ml/min; Est GFR (African American) 61.7; Est GFR (Non-African American) 53.3; Potassium 4.2 mmol/L (3.5-5.1)
[2020-01-14] MEDS: SENNA 8.6 MG TAB PO SCH (08:04)
[2020-01-14] MEDS: DOCUSATE SODIUM 100 MG CAP PO SCH (08:04)
[2020-01-14] MEDS ORDERED: MIDAZOLAM HCL 1 MG/ML 2ML VIAL ONE (08:29)
[2020-01-14] MEDS ORDERED: fentaNYL citrate 100 MCG/2 ML VIAL ONE (08:29)
--- NOTE | 2020-01-14 09:03 | Pain Management Progress Note ---
Date of Service January 14, 2020 Assessment & Plan (1) Acute left lumbar radiculopathy: Present on Admission?: Yes (2) Intervertebral disc protrusion: * Plan to pursue left L3-4 transforaminal YOBANY in the OR today at 930. Patient was n.p.o. since midnight. The potential side effects versus benefits of the YOBANY were discussed at length with the patient as well as expectations and he verbalized understanding. All of his questions were answered. He does elect to proceed with the procedure. * Maintain current medical regimen without change pending response to YOBANY Present on Admission?: Yes Admission and Anticipated Discharge Date Admission Date: January 05, 2020 Subjective Mr. Yousif is 64 year old white male with persistent left gluteal and left lower extremity radicular pain travelling to the anterior medial morse. Patient has continued to rely on oxycodone due to the pain in the left lower extremity. He describes the pain as sharp, shooting and burning in characteristic. Oxycodone is marginal at diminishing the severity of the pain. He remains extremely hesitant and anxious to do any ambulatory activities due to concern over increasing pain. He denies weaknesses, foot drop or falling. He does describe paresthesias in similar distribution as described above. He denies bowel or bladder incontinence or saddle anesthesias. He denies right lower extremity radicular pain. Pain ranging between a 4-8/10. Patient has no further constitutional complaints. Pain Assessment Pain Assessment Pain scale - at its best (0-10): 4 Pain scale - at its worst (0-10): 8 Physical Exam Physical Exam: General: Patient lying quietly upon entering the room in no acute distress. Speech and thought process appropriate. Patient appears to be moderately anxious. Speech and thought process appropriate. Cognition intact. Back/spine: Loss of lordosis. Mildly tender throughout the left gluteal region. Lower extremities: Sensation intact without focal deficit. SLR positive in the supine position at approximately 25 and 30 degrees. Neurologic: Cranial nerves grossly intact. Ambulatory function not witnessed.
--- NOTE | 2020-01-14 09:18 | Anesthesiology Consultation ---
Date of Service January 14, 2020 Patient has no symptoms of Covid 19 and no known exposure to Covid 19. Assessment & Plan (1) Encounter for pre-operative examination: Chart Review Chart Review: Acceptable Risk for Surgery and Patient NOT seen in Pre Admission Testing Consults Requested none History Surgery Operation Date: 01/14/20 09:30 Proposed Procedures p Lumbar Epidural Placement - Akira Acevedo MD, FIPP Height/Weight Height: 5 ft 8 in Weight: 82.6 kg Allergies Allergy/AdvReac Type Severity Reaction Status Date / Time hydrocodone Allergy Unknown DIZZY, Verified 01/05/20 19:44 RASH, NAUSEA oxaprozin AdvReac Mild "BLOATED, Verified 01/05/20 19:44 NAUSEA" clarithromycin AdvReac Unknown "JITTERY, Verified 01/05/20 19:44 TIRED, RAPID PULSE." terazosin AdvReac Unknown "RINING IN Verified 01/05/20 19:44 EARS, DIZZY" Medications Home Medications Medication Instructions Recorded Confirmed Last Taken dextrin 2 tsp PO DAILY 01/05/20 01/05/20 01/04/20 gabapentin 100 mg PO Q8H PRN #30 cap 01/05/20 Unknown naproxen sodium [Naprelan CR] 500 mg PO BID 01/05/20 01/05/20 01/05/20 oxycodone 5 mg PO Q6H PRN #10 tab 01/05/20 Unknown propoxyphene N-acetaminophen 1 tab PO Q12H PRN 01/05/20 01/05/20 01/05/20 10:15 [Darvocet-N 100] tamsulosin [Flomax] 0.4 mg PO HS 01/05/20 01/05/20 01/04/20 Active Medications Generic Name Dose Route Start Last Admin Trade Name Freq PRN Reason Stop Dose Admin Docusate Sodium 100 mg 01/09/20 10:30 01/14/20 08:04 Docusate Sodium 100 Mg Cap PO 02/08/20 10:29 100 mg BID CARROLL Administration Gabapentin 300 mg 01/10/20 06:30 01/14/20 05:43 Gabapentin 300 Mg Cap PO 02/09/20 06:29 300 mg Q8 CARROLL Administration Heparin Sodium (Porcine) 5,000 units 01/09/20 21:00 01/13/20 07:54 Heparin Sod 5,000 Unit/0.5 Ml Vial SQ 02/08/20 20:59 5,000 units Q12 CARROLL Administration Miscellaneous 1 ea 01/07/20 21:00 01/13/20 22:09 Remove Lidoderm Patch N/A 02/06/20 20:59 Not Given DAILY@2100 [facility] Oxycodone HCl 5 mg 01/12/20 16:45 01/14/20 05:49 Oxycodone Hcl Ir 5 Mg Tab (Immediate Release) PO 01/22/20 16:44 5 mg Q4 PRN Administration Moderate Pain Oxycodone HCl 5 mg 01/13/20 04:00 01/13/20 07:54 Oxycodone Hcl Ir 5 Mg Tab (Immediate Release) PO 01/27/20 03:59 5 mg DAILY@0400 CARROLL Administration Oxycodone HCl 10 mg 01/13/20 23:30 01/13/20 22:14 Oxycodone Hcl Ir 5 Mg Tab (Immediate Release) PO 01/27/20 23:29 10 mg DAILY@2330 CARROLL Administration Polyethylene Glycol 17 gm 01/09/20 10:06 01/09/20 11:25 Polyethylene (Miralax) 17 Gm Pack PO 02/08/20 10:05 17 gm DAILY PRN Administration Constipation Sennosides 17.2 mg 01/09/20 10:30 01/14/20 08:04 Senna 8.6 Mg Tab PO 02/08/20 10:29 17.2 mg QAM CARROLL Administration Sodium Biphosphate/Sodium Phosphate 132 ml 01/09/20 10:06 01/10/20 07:55 Sod Phosphate/Sod Biphosphate Enema 132 Ml Btl MN 02/08/20 10:05 132 ml DAILY PRN Administration Constipation Tamsulosin HCl 0.4 mg 01/06/20 21:00 01/13/20 22:13 Tamsulosin Hcl 0.4 Mg Cap PO 02/05/20 20:59 0.4 mg HS CARROLL Administration Past Medical History Medical History Acute left lumbar radiculopathy BPH loc w urin obs/LUTS Social History Smoking Status: Never smoker Hx Alcohol Use: No Hx Substance Use: No Physical Exam Vital Signs Last Vital Signs Temp 36.5 C 01/14/20 09:37 Pulse 68 09/09/20 09:37 Resp 20 01/14/20 09:37 BP 118/70 01/14/20 09:37 Pulse Ox 96 01/14/20 09:37 Testing Laboratory Results 01/14/20 05:41 01/14/20 05:41 PT 10.0 Seconds (9.0-12.0) 01/14/20 05:41 INR 0.9 (0.9-1.1) 01/14/20 05:41 APTT 23.6 Seconds (21.0-31.0) 01/14/20 05:41
[2020-01-14] MEDS ORDERED: ePHEDrine sulfate 50 MG/ML AMP IV PRN (09:41)
[2020-01-14] MEDS ORDERED: ONDANSETRON INJ 2 MG/ML 2 ML VIAL IV PRN (09:41)
[2020-01-14] MEDS ORDERED: PHENYLEPHRINE 100MCG/ML 5ML SYR IV PRN (09:41)
[2020-01-14] MEDS ORDERED: fentaNYL citrate 100 MCG/2 ML VIAL IV PRN (09:41)
[2020-01-14] MEDS ORDERED: ATROPINE SULFATE 0.1 MG/ML 10ML SYR IV PRN (09:41)
[2020-01-14] MEDS ORDERED: MEPERIDINE HCL 25 MG/ML CARP/VIAL IV PRN (09:41)
[2020-01-14] MEDS ORDERED: LABETALOL HCL IV 5 MG/ML 20ML IV PRN (09:41)
--- NOTE | 2020-01-14 09:43 | History & Physical Bridge Note ---
Date of Service January 14, 2020 History & Physical Bridge Note I have examined the patient, reviewed the History & Physical and in the interval since the performance of the History & Physical I have noted the following changes of clinical significance: no changes noted. Mr. Johnny Yousif is a 64-year-old male admitted to [facility] with lumbar spine pain and radicular symptoms of left lower extremity. He was seen by pain management service and based on his history, clinical exam as well as imaging studies he is experiencing radicular pain from what appears to be a foraminal disc protrusion at left L3/L4 level that has not responded to conservative therapy. He continues requiring opiate analgesics and has persistent symptoms. He has been also seen by orthospine surgery service and neurosurgery has been recommended, he wishes to try it more conservative approach prior to con templating surgery. He has been offered transforaminal epidurals injection at this level on the left side with symptom management. MRI imaging at this admission demonstrates the followin. Circumferential disc bulge and left foraminal disc protrusion at the L3-4 level. Moderate spinal stenosis and mild bilateral foraminal narrowing 2. Mild disc bulges with mild spinal canal narrowing at the L1-2 and L2-3 levels. Potential risks including infection, bleeding, nerve injury, persistent pain at the injection site, reaction to any one of the medication used for the procedure, possibility of postdural puncture headache as well as persistent symptoms after the procedure were discussed with the patient. Patient was also informed that additional procedures may be required to treat the complications. Alternatives to this procedure were also discussed with the patient. Patient's questions were answered. Patient gave informed consent.
[2020-01-14] MEDS ORDERED: TRIAMCINOLONE ACET 40 MG/ML VIAL ONE ×2 (10:13→10:25)
[2020-01-14] MEDS ORDERED: LIDOCAINE HCL 2% (LOCAL) INJ 50 ML VIAL ONE (10:13)
[2020-01-14] MEDS ORDERED: IOPAMIDOL INJ 61% 15 ML VIAL ONE (10:13)
[2020-01-14] MEDS ORDERED: ONDANSETRON INJ 2 MG/ML 2 ML VIAL ONE (10:17)
[2020-01-14] MEDS ORDERED: BUPIVACAINE 0.5 % 5 MG/1 ML MPF 30ML VIAL ONE (10:20)
[2020-01-14] MEDS ORDERED: LIDOCAINE HCL 2% MPF (LOCAL) 5 ML VIAL INFIL ONE (10:32)
--- NOTE | 2020-01-14 10:36 | Operative Report ---
Post Operative Report Pre & Post Diagnosis Operation Date: 01/14/20 09:30 Pre-Op Diagnosis: Left L3/L4 disc protrusion with radicular pain Post-Op Diagnosis: Same I identified the patient and participated in the time-out.: Yes Procedure Operation Date: 01/14/20 09:30 Actual Procedures L3-L4 Lumbar Epidural Placement(Left) - Akira Acevedo MD, EMILY Surgeon Akira Acevedo MD, EMILY Electrotype Finisher None Estimated Blood Loss 0 Findings Consistent with Post-Op Diagnosis Specimens None Drains None Anesthesia Type MAC Complications none Disposition Accompanied Patient To Recovery: No Disposition: Recovery Room Description of Procedure LUMBAR TRANSFORAMINAL EPIDURAL STEROID INJECTION Diagnosis: Left L3/L4 disc protrusion with left leg radicular pain Level injected: Left L3/L4 Surgeon: Dr. Acevedo Prior to starting, the Patients diagnosis and the procedure were reviewed with the patient in detail. Possible risks, complications and alternative therapies were also reviewed. Patients questions were answered. Informed consent was obtained. Allergies and medication list was reviewed. The patient was brought to the fluoroscopy room and placed in prone position on the table. Immediately prior to starting the procedure, a ``time out was conducted with the staff and the patient where the patient was identified, proposed procedure was verified, consent was reviewed and the proper site for the planned procedure was identified. Fluoroscopy was utilized in performing the procedure to assist the placement of the needle, to evaluate the final posi tion of the needle prior to injection and to avoid intravascular injection. Monitors used included intermittent blood pressure with automated device, continuous pulse oximetry and level of consciousness. Patient was not given any intravenous sedation and constant verbal contact was maintained throughout the procedure. Biplanar fluoroscopy was used to assist in placement of the needle as well as to evaluate final needle position prior to the injection. On examination, no signs of skin breakdown or infection were noted at the injection site. Lumbar-sacral area was prepped with DuraPrep followed by Betadine solution. Sterile drapes were applied. The appropriate interspace and disk was identified in a true AP view. The fluoroscope was then rotated to obtain a decubitus view in such a manner so that the superior articular process of the inferior vertebra was bisecting the pars inter-articularis of the vertebra above in two. A 22 Gauge 3.5 inch curved (15 degrees) spinal needle was inserted through the skin and subcutaneous tissues, after infiltration of 2 cc of 2% Xylocaine MPF, and advanced in a co-axial technique. Needle tip was first placed on the infero-lateral margin of the pars inter-articularis. Once the bony margin was contacted, the C-arm was rotated to obtain a lateral view. The needle was slowly ``walked off the bone and advanced toward the anterior and superior aspect of the foramen. Patient did not experience any pain or paresthesia. Six inch micro bore tubing was attached to the needle and aspiration did not demonstrate CSF or blood. AP view was checked to ensure the needle tip was in close proximity to the nerve root in the proximal neural foramen lateral to the inferior articular process and in the 6 oclock position. 1 cc of Isovue 300 contrast was injected via the needle under live fluoroscopy. Spread of the contrast was noted in the epidural space and along the nerve root. Neither subdural or subarachnoid spread nor intravascular uptake was noted on plain fluoroscopy. Approximately 10 second digital subtraction angiogram at 8 f/s rate was done in AP view with additional contrast. No vascular uptake was noted. Next 80 mg of Kenalog was injected followed by 2 cc of 2% Xylocaine MPF to flush the needle. The patient did not experience pain during the injection. Adequate hemostasis was noted. A sterile Band-Aid was applied to the injection site. Patient was transferred to recovery room uneventfully. I attest to the content of the Intraoperative Record and any orders documented therein. Any exceptions are noted below.
--- NOTE | 2020-01-14 11:23 | Anesthesiology Progress Note ---
Date of Service January 14, 2020 Anesthesia Post Procedure Vital Signs Vital Signs: Temp Pulse Pulse Resp BP BP Pulse Ox 01/14/20 11:00 36.2 C L 61 16 108/67 92 01/14/20 10:45 63 15 113/71 92 01/14/20 10:36 36.5 C 66 16 133/66 96 01/14/20 09:41 36.3 C L 66 18 115/75 96 01/14/20 09:37 36.5 C 68 20 118/70 96 01/14/20 06:54 36.3 C L 81 16 105/73 95 01/13/20 22:54 36.6 C 81 18 120/71 96 01/13/20 15:16 36.6 C 83 18 122/68 92 Pain Intensity Bilateral Back: Pain Intensity: 2 Left Hip: Pain Intensity: 5 Left Knee: Pain Intensity: 2 Transfer of Care Handoff Completed per policy Notes Mental Status: alert / awake / arousable Patient Amnestic to Procedure: Yes Nausea / Vomiting: adequately controlled Pain: adequately controlled Airway Patency, RR, SpO2: stable & adequate BP & HR: stable & adequate Hydration State: stable & adequate Anesthetic Complications: no major complications apparent and Pt Satisfied with anesthetic care
--- NOTE | 2020-01-14 14:34 | Discharge Summary ---
Date of Service January 14, 2020 Admission HPI Per Admitting Provider The patient is a 64-year-old male with a past medical history including BPH with LUTS and low back pain. He was seen by his PCP, and received an injection of his left hip for possible bursitis, to address the pain is had over the last several months. He was also given a course of oral prednisone without significant improvement, while waiting for an outpatient MRI. He did have the MRI performed today, and had such severe pain after lying flat on the table, that he presented to the ED for assessment. Patient reports that he did have some old Darvocet, along with naproxen, that he had tried to relieve the pain, without significant improvement. Principal Diagnosis Lumbar radiculopathy, intractable pain Discharge Exam Constitutional WD/WN, vitals as above Eyes + anicteric sclerae Neck trachea midline, no thyromegaly Respiratory normal respiratory effort, lungs clear to auscultation Cardiovascular RRR, no murmur, no edema Chest (Breasts) Chest: normal inspection of chest Gastrointestinal (Abdomen) normal bowel sounds, soft, nontender, no hepatosplenomegaly Musculoskeletal Extremities: extremities normal to inspection; no cyanosis and no clubbing Skin no rashes, warm and dry Neurologic moves all extremities and awake; not confused Gait: + gait assisted Psychiatric Orientation: alert and oriented x 3 Affect: + anxious affect Mood: + anxious mood Lymphatic no lymphedema Discharge Data Allergies Allergy/AdvReac Type Severity Reaction Status Date / Time hydrocodone Allergy Unknown DIZZY, Verified 01/05/20 19:44 RASH, NAUSEA oxaprozin AdvReac Mild "BLOATED, Verified 01/05/20 19:44 NAUSEA" clarithromycin AdvReac Unknown "JITTERY, Verified 01/05/20 19:44 TIRED, RAPID PULSE." terazosin AdvReac Unknown "RINING IN Verified 01/05/20 19:44 EARS, DIZZY" Consultations 01/05/20 21:39 ED Decision to Admit Stat 01/05/20 22:35 Consult Orthopedic Surgery Routine 01/05/20 22:36 Consult Case Management - Discharge Planning Routine 01/07/20 14:16 Consult Pain Management Routine Procedures Performed Operation Date: 01/14/20 09:30 Actual Procedures p L3-L4 Lumbar Epidural Placement(Left) - Akira Acevedo MD, FIPP Ordered Studies 01/14/20 09:30 FL fluoroscopy <1hr Routine FL lumbar spine 2-3V Routine Lumbar spine xray Hips/pelvis xray Hospital Course (1) Intervertebral disc protrusion: Acute left lumbar radiculopathy/L3-4 left foraminal disc protrusion/moderate spinal stenosis/mild bilateral foraminal stenosis. Continued to have severe left sided lumbar radiculopathy, not changed much by Oxycodone, gabapentin, and steroids -now s/p YOBANY with Pain Man -stable for dc to home with po oxycodone to be used sparingly until YOBANY hopefully helps with pain-pt adamant about having oxycodone at home just in case something weaker like tramadol wouldn't help - Continue gabapentin, acetaminophen,oxycodone -if YOBANY not helping, he was also seen by Ortho Spine, Dr. Abernathy, who also offered lumbar surgery-f/u as outpt as needed -continue bowel regimen with docusate, senna, daily Miralax (2) Acute left lumbar radiculopathy: See above (3) Back pain: See above (4) BPH loc w urin obs/LUTS: No report of LUTS here - Continue tamsulosin 0.4 mg daily (5) Constipation: had small BM once while here; says he has alternating constipation and diarrhea at home, fiber does not help usually goes q4 days -continue senna, docusate scheduled and daily Miralax, goal BM at least q2-3 days (6) DVT prophylaxis: Heparin 5,000 units SQ was given until had steroid injection in spine, SCDs Dispo-dc to home Total Time Total Time Spent Total Time Spent (In Minutes): 35 min Total Time Includes: Examination of the Patient, Discharge Planning, Medication Reconciliation and Communication With Other Providers (Dr. Acevedo) Discharge Plan Discharge Items Patient Disposition: Home - Self-Care Reason For Visit: INTRACTABLE LOW BACK PAIN Discharge Diagnosis: Lumbar radiculopathy, intractable pain Condition on Discharge: Fair Activity: As commented below Lifting: None Bathing: No limitations Exercise/Sports: As tolerated Exercise Comment: no heavy exertion Driving/Machine Use: No driving while taking oxycodone Weightbearing: Full weightbearing Non-emergency contact: Primary Care Provider and Pain Management Call non-emergency contact if: you have any medication questions, your symptoms worsen, your pain is not controlled, your pain is worsening, your pain is unusual for you, your pain is concerning for you, you have a fever and your temperature is above 101 Follow-up/Referrals: Akira Acevedo MD, FI [Anesthesiologist] - (Follow up in 2 weeks) Gregory Gomes [Primary Care Provider] - (Follow up within 1-2 weeks.) Diet: Regular Addtl Attending Provider Instructions: Continue oxycodone sparingly as needed for pain. You should follow up with Dr. Gomes within 1-2 weeks for hospital follow up and with Dr. Acevedo in 2 weeks for follow up after your epidural steroid injection. Continue the medications for constipation until you are having at least one bowel movement every 2-3 days. Pending Studies at Discharge: No Stand-Alone Forms: My [facility] Medications and DC Order Prescriptions: New acetaminophen 325 mg Tablet 650 mg PO Q4H PRN (Reason: pain) Qty: 30 RF: 0 gabapentin 300 mg Capsule 300 mg PO Q8 Qty: 90 RF: 0 oxycodone 5 mg Tablet 5 - 10 mg PO Q6H PRN (Reason: severe pain) Qty: 42 RF: 0 docusate sodium 100 mg Capsule 100 mg PO BID Qty: 60 RF: 0 polyethylene glycol 3350 17 gram/dose powder 17 g PO DAILY Qty: 119 RF: 0 sennosides [Senokot] 8.6 mg Tablet 17.2 mg PO QAM Qty: 60 RF: 0 Continued tamsulosin [Flomax] 0.4 mg capsule 0.4 mg PO HS RF: 0 dextrin 3 gram/3.5 gram Powder 2 tsp PO DAILY RF: 0 Discontinued Darvocet-N 100 100-650 mg Tablet 1 tab PO Q12H PRN (Reason: Pain) RF: 0 naproxen sodium [Naprelan CR] 500 mg tablet, ER multiphase 24 hr 500 mg PO BID RF: 0 Discharge Orders: Discharge Order (Routine); Ordered 01/14/20 Ordered By: Lisa Church Admission Data Admit Date/Time: 01/05/20 22:35 Attending Provider: Lisa Church Admit Provider: Dwayne Armstrong Primary Care Provider: Gregory Gomes Other Providers: Alejandro Cummins ; Dwayne Armstrong ; Maldonado Abernathy ; Candice Ayala Coding Level of Care Code D/C Day Management >30 mins Diagnoses Intervertebral disc protrusion Acute left lumbar radiculopathy M54.16 Back pain M54.42; G89.29 Back pain laterality: left Back pain location: low back pain Chronicity: chronic Sciatica laterality: sciatica of left side Sciatica presence: with sciatica BPH loc w urin obs/LUTS N40.1 Constipation K59.00 DVT prophylaxis Z29.9
== END 2020-01-14 15:55 | disposition home or self-care (01) | DRG 552 ==
LOC: ED 16:45 → 3N 22:35 → SUATTDRO 22:35 → 3N 01-06 00:03